=== PATIENT | female | born 1970 | race Caucasian/White ===

== ENCOUNTER 2023-10-17 18:23 | Inpatient (IN) | payer BC, SELFPAY ==
[2023-10-17] VITALS (12 sets, daily range): BP systolic 94–137; BP diastolic 47–115; BMI 24.5; BMI 24.0
[2023-10-17 14:19] LABS: % Basophils 0.3 % (0-2); % Eosinophils 0.8 % (0-6); % Immature Granulocytes 0.2 % (0-0.5); % Lymphocytes 14.9 % (20.5-51.1); % Monocytes 9.3 % (1.7-9.3); % Neutrophils 74.5 % (42.2-75.2); Absolute Eosinophils 0.1 10^3/uL (0-0.7); Absolute Lymphocytes 1.4 10^3/uL (1.2-3.4); Absolute Monocytes 0.9 10^3/uL (0.1-0.6); Absolute Neutrophils 6.8 10^3/uL (1.4-6.5); Hematocrit 34.7 % (37.0-47.0); Hemoglobin 12.2 g/dL (12.0-16.0); Mean Corp Hgb Conc. 35.2 g/dL (33.0-37.0); Mean Corpuscular Hgb 36.5 pg (27.0-31.0); Mean Corpuscular Volume 103.9 fL (81.0-99.0); Mean Platelet Volume 10.9 fL (7.4-10.4); Nucleated Red Blood Cells % 0 %; Platelet Count 300 10^3/uL (130-400); Red Blood Cell Count 3.34 10^6/uL (4.20-5.40); Red Cell Dist. Width 11.7 % (11.5-14.5); White Blood Cell Count 9.2 10^3/uL (4.8-10.8)
--- NOTE | 2023-10-17 14:22 | PHANOTE ---
Medications brought from home:
[facility] [place]:
levothyroxine 50 mcg daily filled 09/17/23
amlodipine 5mg daily filled 09/17/23
carvedilol 25mg filled 09/17/23 (08/17/23)
gabapentin 300mg q8hprn filled (03-12-23)
escitalopram 10 mg filled 07/18/22
atorvastatin 20mg filled 08/27/23
zolpidem 10 mg filled 09/18/23 - #12 tabs and 3 half-tabs
metoprolol succ 100mg daily filled 07/11/22
Nakul Bai ([address])
alprazolam 0.25 daily filled 10/24/20 - #15 tabs
JENA Chinchilla
Venlafaxine ER 75mg daily filled 05/07/21
--- NOTE | 2023-10-17 14:27 | ED.GENMED ---
History of Present Illness
<Ysabel Post PA-C - Last Filed: 10/17/23 16:25>
General
Chief Complaint: Change in Mental Status
Source: patient, family and ambulance crew
Exam Limitations: altered mental status
Time Seen by Provider: 10/17/23 14:10
Nursing documentation reviewed up to this point in time: agreed with
Travel History
Have you had any contact with someone who has COVID-19?: No
Do you have any symptoms of coronavirus? Fever > 100 degrees, chills, cough, shortness of breath, sore throat, loss of taste or smell, muscle aches, or headache?: No
History of Present Illness
History of Present Illness:
53-year-old female with a history of alcohol abuse here via EMS after brother apparently called 911. EMS reported that she was not answering the phone and so he went over to check on her. Patient seemed more confused and apparently stopped 'taking
her meds.' We are not sure what medications were talking about. She had reported daily vodka use until sometime ago which she cannot recall. Patient says she is having trouble with her memory. She knows she had her face and the back of her head
but does not remember the nature of what happened. She does not know if she passed out, she does not know when she could have done these things but she has bruising to her left face.
Patient is perseverating about needing her Ambien at night. She believes that her brother is in the hallway of the department and talking about he, she says she can hear his voice. Patient was told several times that he was not in the hallway, I
went to the waiting room to look for him he was not there, I did call his number and he did not miner pick we left a message. She does give me consent to talk to her brother when I get a hold of him.
she wants me to know that she needs ambien but whne asked how often does she take it, she says only ionce at night.
Patient's brother and his partner came to the hospital and I was able to talk to them privately. Apparently the patient has not been herself more recently, they have had a hard time getting a hold of her on the telephone and they were busy with the
restaurant so they had not checked in on her but when patient's mother who is out of town continually called her through the night she did not answer the mom asked the brother to go to the house. He went to the house today and banged on the door
and was able to get in, he saw that she had obvious signs of head trauma
They say this is not how she normally appears but they have not seen her in a few weeks
Past History
<Ysabel Post PA-C - Last Filed: 10/17/23 16:25>
Past History
ED Past Medical History: Hypercholesterolemia
ED Past Surgical History: None
Social History
Tobacco: Non-smoker
Alcohol: Other (Unclear but sounds like patient was pretty heavily drinking for quite a bit)
Personal:
Living: with family
Employment: Employed
Review of Systems
<Ysabel Post PA-C - Last Filed: 10/17/23 16:25>
Review of Systems
Allergies reviewed?: Yes
Phy Exam
<Ysabel Post PA-C - Last Filed: 10/17/23 16:25>
Physical Exam
Physical Exam:
GENERAL: Alert seems slightly anxious, perseverating, somewhat nonsensical at times pulling at things
HEAD: Obvious moderate size hematoma to the left temporal region, mild hematoma to the top of the scalp
NECK: no midline tenderness, active ROM intact, no paraspinal muscle tenderness;
EYE: pupils equal and reactive, EOMs intact., No obvious nystagmus, no intact visual field exam
ENT: o/p clr, mmm. no hemotympanum
CARDIAC: Regular rate and rhythm, no edema
LUNGS: Clear breath sounds bilaterally, no acute respiratory distress, no wheezes/rales/rhonchi
ABDOMEN: Soft, without focal tenderness, no r/g, no cvat
NEUROLOGICAL: Alert and oriented, no focal neuro deficits, CN intact, 5/5 strength, sensation intact
SKIN: Warm and dry, ecchymosis left head
MUSCULOSKELETAL: mild bruising old on right hand nontneder full rom
PSYCH: anxious, psychosis, hallucinating, seems to be responding to simtuli, thinks her brother is in the room, looked at the cabinet and thought it was a person
Course
<Ysabel Post PA-C - Last Filed: 10/17/23 16:25>
Orders/Labs/Results
Orders:
Orders
10/17/23 13:57
EKG [Electrocardiogram (*1)] Urgent
Reason for Study: Vertigo / Dizzy
EKG- Treatment ONCE
10/17/23 13:59
Alcohol Urgent
Complete Blood Count/With Diff Urgent
Comprehensive Metabolic Panel Urgent
Magnesium Urgent
Comment: ADD ON
TSH Reflex To Free T4 Urgent
Comment: ADD ON
Urine Drug Abuse Screen Urgent
Date Specimen was Collected: 10/17/23
Time Specimen was Collected: 13:57
10/17/23 14:04
CT Head W/o Iv Contrast Urgent
Comment:
Reason For Exam: unwitnessed fall with strike to head
10/17/23 14:22
Lorazepam [Ativan] 1 mg IV NOW STA
10/17/23 14:26
EKG- Treatment ONCE
PTT Urgent
Prothrombin Time Urgent
10/17/23 14:27
Add On- LAB Urgent
Tests Added?: tsh reflex t4, magnesium
10/17/23 15:00
Thiamine Injection 500 mg 0.9% Sodium Chloride 250 ml [Nss] 250 ml IV ONCE
Abnormal Lab Results
10/17/23
13:59
RBC 3.34 L 10^6/uL
(4.20-5.40)
Hct 34.7 L %
(37.0-47.0)
MCV 103.9 H fL
(81.0-99.0)
MCH 36.5 H pg
(27.0-31.0)
MPV 10.9 H fL
(7.4-10.4)
Absolute Neuts (auto) 6.8 H 10^3/uL
(1.4-6.5)
Absolute Monos (auto) 0.9 H 10^3/uL
(0.1-0.6)
Lymphocytes % 14.9 L %
(20.5-51.1)
BUN 25 H mg/dl
(7-17)
Glucose 131 H mg/dl
(70-99)
Calcium 10.3 H mg/dl
(8.4-10.2)
AST 60 H U/L
(14-36)
ALT 68 H U/L
(0-35)
10/17/23 13:59
10/17/23 13:59
Vital Signs
Initial and Last Documented VS:
Initial Vital Signs
Temp Pulse Resp BP Pulse Ox
98.2 F 72 16 136/71 99
10/17/23 13:58 10/17/23 13:58 10/17/23 13:58 10/17/23 13:58 10/17/23 13:58
Last Documented Vital Signs
Temp Pulse Resp BP Pulse Ox
98.2 F 82 19 109/63 99
10/17/23 13:58 10/17/23 16:00 10/17/23 16:00 10/17/23 16:00 10/17/23 13:58
Vinayaklt;Dharmesh Han, DO - Last Filed: 10/17/23 16:13>
Orders/Labs/Results
Orders:
Orders
10/17/23 13:57
EKG [Electrocardiogram (*1)] Urgent
Reason for Study: Vertigo / Dizzy
EKG- Treatment ONCE
10/17/23 13:59
Alcohol Urgent
Complete Blood Count/With Diff Urgent
Comprehensive Metabolic Panel Urgent
Magnesium Urgent
Comment: ADD ON
TSH Reflex To Free T4 Urgent
Comment: ADD ON
Urine Drug Abuse Screen Urgent
Date Specimen was Collected: 10/17/23
Time Specimen was Collected: 13:57
10/17/23 14:04
CT Head W/o Iv Contrast Urgent
Comment:
Reason For Exam: unwitnessed fall with strike to head
10/17/23 14:22
Lorazepam [Ativan] 1 mg IV NOW STA
10/17/23 14:26
EKG- Treatment ONCE
PTT Urgent
Prothrombin Time Urgent
10/17/23 14:27
Add On- LAB Urgent
Tests Added?: tsh reflex t4, magnesium
10/17/23 15:00
Thiamine Injection 500 mg 0.9% Sodium Chloride 250 ml [Nss] 250 ml IV ONCE
Abnormal Lab Results
10/17/23
13:59
RBC 3.34 L 10^6/uL
(4.20-5.40)
Hct 34.7 L %
(37.0-47.0)
MCV 103.9 H fL
(81.0-99.0)
MCH 36.5 H pg
(27.0-31.0)
MPV 10.9 H fL
(7.4-10.4)
Absolute Neuts (auto) 6.8 H 10^3/uL
(1.4-6.5)
Absolute Monos (auto) 0.9 H 10^3/uL
(0.1-0.6)
Lymphocytes % 14.9 L %
(20.5-51.1)
BUN 25 H mg/dl
(7-17)
Glucose 131 H mg/dl
(70-99)
Calcium 10.3 H mg/dl
(8.4-10.2)
AST 60 H U/L
(14-36)
ALT 68 H U/L
(0-35)
10/17/23 13:59
10/17/23 13:59
Vital Signs
Initial and Last Documented VS:
Initial Vital Signs
Temp Pulse Resp BP Pulse Ox
98.2 F 72 16 136/71 99
10/17/23 13:58 10/17/23 13:58 10/17/23 13:58 10/17/23 13:58 10/17/23 13:58
Last Documented Vital Signs
Temp Pulse Resp BP Pulse Ox
98.2 F 82 19 109/63 99
10/17/23 13:58 10/17/23 16:00 10/17/23 16:00 10/17/23 16:00 10/17/23 13:58
<Ysabel Post PA-C - Last Filed: 10/17/23 16:25>
MDM/Problems Addressed
MDM/Problems Addressed:
pt saw another pcp in the practice last week and his note does not say p tis confused but pt has never admitted to excessive alcohol intake,but they have suggested that she probably does drink more heavily than she admits
i spoke with DIRECTOR MULTIMEDIA who reviewed the note
53 y/o F with h/o hypothyroid, anxiety, sleep issues, depression, and likely chronic alcohol abuse; she apparently stopped drinking in some time frame - she cannot recall, and her brother thinks it was a few weeks ago, she says cold turkey; she
wasn't answering her phone for the weekend so then today her brother went to the house and she was found disheveled, obvious left temporal head contusion and hallucinating; here pt seems to be hearing voices, disoriented to time, a little anxious,
tremulous but has otherwise nonfocal neuro exam; she answers some questions nonsensically
vitals stable, ct head neg, sodium normal, mild trasnaminitis (less than at PCP last week, 100s then 60s now); alcohol neg; uds pending
she has been prescribed ambien and is perseverating about needing it, she may be takin too much at home, but its unclear what's causing her psychosis; she ocul dhave some underlying mental illness but i'm also worried about wernickes; she got 500 mg
iv thiamine, NS bolus, and ativan; will need neuro and psych consults
<Ysabel Post PA-C - Last Filed: 10/17/23 16:25>
*Critical Care Note
Total Time (30-74mins, 75-104mins- exclusive of procedures): Not Applicable
ED Attending Note
<Ysabel Post PA-C - Last Filed: 10/17/23 16:25>
-
Portions of this chart may have been created with voice recognition software.� Occasional wrong word or��sound alike� substitutions may have occurred due to the inherent limitations of voice recognition software.
<Dharmesh Han DO - Last Filed: 10/17/23 16:13>
ED Attending Note
Patient seen and examined by attending physician: Yes
I performed a history and physical exam of patient and discussed management with resident, I reviewed resident's note and agree with documented findings and plan of care.: Yes
ED Attending Note:
I have reviewed and agree with history and treatment plan by Aura Post. My exam revealed
Physical Exam
General: Afebrile, disheveled
Neck: supple. no meningeal signs. normal posterior pharynx
Heart: s1/s2 regular rate and rhythm, no murmur. equal radial
pulses.
HEENT: Pupils equal round reactive to light, EOMI
Lungs: no acute respiratory distress. clear bilaterally
Abdomen: normal bowel sounds. not tender. no CVAT
Neuro: alert and oriented to person. no focal neurological deficits cranial nerves II through XII intact, resting tremor
Skin: no rash, healing hematoma left forehead/supraorbital
Psychiatric: Confused, tangential thought
Extremities: no edema. no calf tenderness. negative homans. good distal pulses
53-year-old female with altered mental status, unclear timing. Concerns for polypharmacy, psychosis, alcohol withdrawal, toxic metabolic encephalitis. Do not suspect CVA. Admit to hospital for further evaluation.
Discharge Plan
Departure
Patient Disposition: Admit
Date of Disposition: 10/17/23
Time of Disposition: 16:03
Presentation/result/management discussed w/ accepting MD/DO: Hospitalist
Condition: Fair
Covid-19: Not Applicable
Discharge Problem:
AMS (altered mental status)
Prescriptions:
No Action
carvedilol 25 mg tablet
25 mg PO BID
atorvastatin 20 mg tablet
20 mg PO DAILY
amlodipine 5 mg tablet
5 mg PO DAILY
levothyroxine 50 mcg tablet
50 mcg PO DAILY@0600
zolpidem 10 mg tablet
10 mg PO HS
Referrals:
UNKNOWN - PT DOES,NOT KNOW [Family Provider] -
Interventions
Interventions:
*Risk Screen - Suicide Last Done: 10/17/23 13:58
*General Assessment Last Done: 10/17/23 13:58
*Neglect/Abuse Screening Last Done: 10/17/23 13:58
ED- Fall Risk Assessment Last Done: 10/17/23 13:58
*ED COVID-19 Vaccine History Last Done: 10/17/23 13:58
ED- Pulmonary Assessment Last Done: 10/17/23 13:58
ED-Psychological Assessment Last Done: 10/17/23 13:58
ED- Neurological Assessment Last Done: 10/17/23 13:58
ED- Cardiac Assessment Last Done: 10/17/23 13:58
ED Swallowing Screen Last Done: 10/17/23 13:58
Discharge Date and Time
Print Language: TAIWANESE
[2023-10-17 14:36] LABS: ALT (SGPT) 68 U/L (0-35); AST (SGOT) 60 U/L (14-36); Albumin 4.8 g/dl (3.5-5.0); Alkaline Phosphatase 96 U/L (38-126); Blood Urea Nitrogen 25 mg/dl (7-17); Calcium 10.3 mg/dl (8.4-10.2); Carbon Dioxide 25 mmol/L (22-30); Chloride 105 mmol/L (98-107); Estimated Creatinine Clearance 85 ml/min; Glucose 131 mg/dl (70-99); Potassium 3.7 mmol/L (3.5-5.1); Sodium 141 mmol/L (135-145); Total Protein 7.4 g/dl (6.3-8.2); eGFR > 60.00
[2023-10-17 14:40] LABS: Alcohol None Detected
[2023-10-17] MEDS: ATIVAN 1 MG IV ×2 (14:54→17:46)
--- NOTE | 2023-10-17 14:54 | EDRN ---
Ativan administered via IV per provider Ysabel LEDESMA
[2023-10-17] MEDS: THIAMINE INJECTION 255 MG IV (15:12)
[2023-10-17 15:19] LABS: TSH Reflex To Free T4 2.18 uIU/ml (0.47-4.68)
--- NOTE | 2023-10-17 16:22 | EDRN ---
the pt pressed the call parker and this RN entered the pts room, the pt stated to this RN that she needed to use the bathroom, the pt was unhooked from the monitor and the pt was able to ambulate to the bathroom x1 assist and back to the stretcher
with no issues, urine specimen collected and sent to the lab, the pt is resting in stretcher in the lowest position, side rails up x2, call parker within reach, HOB elevated, will continue to monitor the pt closely
[2023-10-17 16:37] LABS: Amphetamines Negative (Negative); Barbiturates Negative (Negative); Benzodiazepines Negative (Negative); Buprenorphine Negative (Negative); Cocaine Negative (Negative); Methadone Negative (Negative); Methamphetamines Negative (Negative)
[2023-10-17 16:38] LABS: Marijuana Negative (Negative); Opiates Negative (Negative); Phencyclidine Negative (Negative); Tricyclic Antidepressants Negative (Negative)
[2023-10-17 17:07] LABS: Urine Albumin Trace (Neg - Trace); Urine Bilirubin 1+ (Negative); Urine Character Clear (Clear); Urine Color Yellow; Urine Glucose Negative (Negative); Urine Ketone 3+ (Negative); Urine Leukocyte Negative (Negative); Urine Nitrite Negative (Negative); Urine Occult Blood 3+ (Negative); Urine Specific Gravity 1.025 (<1.030); Urine Urobilinogen Negative (Neg - 1+)
--- NOTE | 2023-10-17 17:15 | EDRN ---
still awaiting admission orders
[2023-10-17 17:20] LABS: Urine Bacteria Moderate (Negative); Urine Mucus Few; Urine Red Blood Cell 26-30 /HPF (0-2)
--- NOTE | 2023-10-17 17:27 | HPS.HSE ---
Family Physician
<MANISHA Amato - Last Filed: 10/17/23 18:12>
-
Family Physician: NOT KNOW UNKNOWN - PT DOES
Chief Complaint
<MANISHA Amato - Last Filed: 10/17/23 18:12>
-
Acute confusion
History of Present Illness
53-year-old female whose brother called for a well check after not hearing from her. They have not seen her in approximately a few weeks. The patient is an alcoholic normally uses daily vodka 750 mL she reports stopping drinking she thinks in
July but then states she cut down on drinking and is unsure of her last drink she also has stopped taking her medications which she cannot list. She is unsure how she obtained a bruise to the left side of her face. She was visually
hallucinating seeing her brother in the hallway, in the room, laughing inappropriately counting 10, 20, 30�, Seeing formations of clouds and her dog Mihir While in the emergency department. According to her phone record the last outgoing
phone call she made was to her friend Bryson on Sunday that lasted approximately 18 minutes. She has no recollection of speaking with him. She denies current headache, fever, sore throat, cough, shortness of breath, abdominal pain, nausea, vomiting,
diarrhea, urinary symptoms
She has past medical history of alcohol abuse, HTN, HLD, insomnia, hypothyroidism.
Medical History
<MANISHA Amato - Last Filed: 10/17/23 18:12>
Past Medical History
Past Medical History: Reports Other
Additional Past Medical History:
alcohol abuse, HTN, HLD, insomnia, hypothyroidism.
Past Surgical History: Reports Other
Additional Past Surgical History:
Right index finger bony growth removal with local anesthesia
Appendectomy
Social History
Tobacco: Non-smoker
Alcohol: Daily (750 mL vodka unsure when she stopped)
Drug: None
Personal: Single
Living: Alone
Employment: Not Employed
Family History
Family History: Unable to Obtain
Allergies / Home Medications
Allergies reflects when Allergies were last updated in [facility].
Home Medications with original date entered in [facility]
Allergy/Medication List:
Allergies
Allergy/AdvReac Type Severity Reaction Status Date / Time
erythromycin base Allergy Hives Verified 12/04/22 13:38
[Erythromycin Base]
Home Medications
amlodipine 5 mg tablet 5 mg PO DAILY 10/17/23
atorvastatin 20 mg tablet 20 mg PO DAILY 10/17/23
carvedilol 25 mg tablet 25 mg PO BID 10/17/23
levothyroxine 50 mcg tablet 50 mcg PO DAILY@0600 10/17/23
zolpidem 10 mg tablet 10 mg PO HS 10/17/23
Review of Systems
<MANISHA Amato - Last Filed: 10/17/23 18:12>
-
History Source: Patient and Family (Brother to emergency department MD)
A 12 point ROS was completed and negative except as noted: Yes
Constitutional: Reports Other (Confusion with visual hallucinations seeing her brother, dog, formation of clouds, inappropriately laughing and counting); Denies Fever
EENT: Reports Other (Resolving contusion to left temporal area); Denies Sore Throat or Runny Nose
Respiratory: Denies Cough or Trouble Breathing
Cardiac: Denies Chest Pain, Diaphoresis or Palpitations
Abdomen/GI: Denies Abdominal Pain, Nausea, Vomiting, Diarrhea, Constipated, Bloody Stools or Black Stools
: Denies Dysuria, Frequency, Flank Pain, Incontinence or Difficulty Voiding
Musculoskeletal: Denies Joint Pain or Edema
Skin: Denies Itching or Rash
Neurological: Denies Dizzy, Headache or Weakness
Endocrine: Reports No Symptoms
Hematologic/Lymphatic: Reports No Symptoms
Psych: Reports Audio or Visual Hallucinations (Visual hallucinations) and Other (Tremors to hands)
Physical Exam
<MANISHA Amato - Last Filed: 10/17/23 18:12>
Vital Signs
Vital Signs
Temp Pulse Resp BP Pulse Ox
98.2 F 84 20 108/47 99
10/17/23 13:58 10/17/23 16:30 10/17/23 16:30 10/17/23 16:15 10/17/23 13:58
Physical Exam
General: Other ( Confusion with visual hallucinations seeing her brother, dog, formation of clouds, inappropriately laughing and counting)
HEENT: NormoCephalic, Anicteric, Moist mucous membranes, PERRLA, [place] Conjunctivae, No Ptosis, Neck Nontender and Other (Resolving bruise left temporal/left orbit area)
Respiratory: Clear; No Wheezes, Rales or Rhonchi
Cardiac: S1/S2 and Regular Rhythm; No Murmur, Rub, Gallop or Peripheral Edema
Breast: Deferred by me
GI: Soft, Non Tender, Non Distended, Normal Bowel Sounds and No Hepatosplenomegaly
Rectal: Deferred by Provider
Genito-urinary: Deferred by me
Musculoskeletal: No Clubbing, No Cyanosis and No Edema
Skin: Warm, Dry and Other (Resolving bruise left temporal area); No Rash
Neuro: Awake, Alert and Oriented (To name and [facility] only when asked date she states the rounding and the [place])
Psych: Other (Confusion with visual hallucinations seeing her brother, dog, formation of clouds, inappropriately laughing and counting)
Laboratory Results
<MANISHA Amato - Last Filed: 10/17/23 18:12>
-
10/17/23 13:59
10/17/23 13:59
Laboratory Results
Total Bilirubin 1.0 mg/dl (0.2-1.3) 10/17/23 13:59
AST 60 U/L (14-36) H 10/17/23 13:59
ALT 68 U/L (0-35) H 10/17/23 13:59
Alkaline Phosphatase 96 U/L (38-126) 10/17/23 13:59
Impression/Plan
<MANISHA Amato - Last Filed: 10/17/23 18:12>
-
Impression/plan:
Admit to IMU
#Acute encephalopathy with Hallucinations concern for Wernicke's/alcohol withdrawal
# Hx alcohol abuse-unclear last use
EtOH level negative
UDS negative
TSH normal
-Consult neurology
-Consult psychiatry
-Check MRI brain with and without in a.m.-patient may require IV Ativan prior
-IV Ativan given in ER
-Check COVID/flu, B12, folate
-Alcohol withdrawal protocol including thiamine and folate
-Phenobarb taper
CT head: Mild changes of cortical atrophy, no acute intracranial abnormality
EKG: NSR 70 bpm, QTc 438 MS
#Left temporal head contusion likely secondary to fall
#Chronic transaminitis likely secondary to alcohol abuse
-Follow CMP, check INR
#Hypothyroidism
TSH NML
-Continue levothyroxine 50 mcg daily
#HTN�benign
108/47
Hold amlodipine 5 mg daily, carvedilol 25 mg p.o. twice daily due to soft BPs
#HLD
- cont atorvastatin
#Insomnia
-Hold Ambien 10 mg at bedtime due to confusion
DVT prophylaxis
SCDs
Full code
<Venkata Alanis MD - Last Filed: 10/17/23 18:25>
-
I saw and examined the patient.
The PRODUCT SUPPORT REPRESENTATIVE or PA's note was reviewed and I agree with the note.
Comment:
Patient appears to be confused
Ecchymosis on the left druze area just in the lateral corner of the left eye
Cardiovascular system S1-S2 appreciated
Chest clear to auscultation
Abdomen soft nontender
No pedal edema
Patient is confused moving all extremities with commands
Answer some questions appropriately but also very confused
# TME
Likely secondary to DTs
Alcohol level 0
Cannot rule out other alcohol related brain injury
Check MRI of the brain with and without contrast
Phenobarbital taper
MSAS protocol and Ativan
Agree with high-dose of thiamine
CT already with changes of cortical atrophy at age 53
Hold Ambien
# Alcohol use disorder-thiamine
# Elevated transaminases secondary to alcohol use
# Hypertension-hold off on amlodipine and carvedilol due to low blood pressure
# Hyperlipidemia-hold off on atorvastatin with elevated LFTs
# Hypothyroidism-continue Synthroid
# Insomnia-Ambien
# Microscopic hematuria
# DVT prophylaxis-Lovenox
# Full code
Impression/plan:
Admit to IMU
#Acute encephalopathy with Hallucinations concern for Wernicke's/alcohol withdrawal
# Hx alcohol abuse-unclear last use
EtOH level negative
UDS negative
TSH normal
-Consult neurology
-Consult psychiatry
-Check MRI brain with and without in a.m.-patient may require IV Ativan prior
-IV Ativan given in ER
-Check COVID/flu, B12, folate
-Alcohol withdrawal protocol including thiamine and folate
-Phenobarb taper
CT head: Mild changes of cortical atrophy, no acute intracranial abnormality
EKG: NSR 70 bpm, QTc 438 MS
#Left temporal head contusion likely secondary to fall
#Chronic transaminitis likely secondary to alcohol abuse
-Follow CMP, check INR
#Hypothyroidism
TSH NML
-Continue levothyroxine 50 mcg daily
#HTN�benign
108/47
Hold amlodipine 5 mg daily, carvedilol 25 mg p.o. twice daily due to soft BPs
#HLD
- cont atorvastatin
#Insomnia
-Hold Ambien 10 mg at bedtime due to confusion
DVT prophylaxis
SCDs
Full code
--- NOTE | 2023-10-17 17:46 | EDRN ---
A second dose of Ativan was administered via PIV per the provider Ysabel LEDESMA
[2023-10-17] MEDS: NSS 1000 IV ×2 (17:47→21:41)
--- NOTE | 2023-10-17 17:50 | EDRN ---
Rica Mora RAIL SETTER currently at the pts bedside speaking with the pt regarding admission
--- NOTE | 2023-10-17 18:11 | EDRN ---
the pt is resting in stretcher in the lowest position, side rails up x2, call parker within reach, HOB elevated, no s/s of distress, NSR in the 80's, RA Sp02 98%, no c/o chest pain, no c/o SOB, the pt is AAO with periods of confusion, will continue to
monitor the pt closely
[2023-10-17 18:16] LABS: INR 1.18; PT 15.1 Sec (11.4-14.6)
[2023-10-17 18:17] LABS: APTT 26.7 Sec (23.4-35.0)
[2023-10-17 18:24] LABS: COVID-19 Antigen Negative (Negative)
--- NOTE | 2023-10-17 18:30 | EDRN ---
second PIV placed, awaiting phenobarbitol
--- NOTE | 2023-10-17 18:46 | EDRN ---
this RN noticed that the pts Sp02 dipped to 89%, this RN placed the pt on 3L NC and the pts sp02 came up to 97%, no c/o chest pain, no c/o SOB, no s/s of distress
[2023-10-17] MEDS: PHENOBARBITAL 104 MG IV (18:56)
--- NOTE | 2023-10-17 21:00 | PTCARENOTE ---
Received Pt from Ed. MSAS and Q4 neuro completed (see work list). Assessment care and vitals as charted.
[2023-10-17] MEDS: LOVENOX 40 MG SC (21:41)
[2023-10-17 22:29] LABS: GGTP 242 U/L (12-43); Phosphorus 4.1 mg/dl (2.5-4.5)
[2023-10-17 22:35] LABS: B-Hydroxybutyrate 0.91 mmol/L (0.02-0.27)
[2023-10-18] VITALS (14 sets, daily range): BP systolic 97–161; BP diastolic 70–98; PULSE 82–86; O2SAT 96–98; BMI 24.2
[2023-10-18] MEDS: THIAMINE INJECTION 255 MG IV ×3 (00:01→16:35)
--- NOTE | 2023-10-18 03:35 | PTCARENOTE ---
Pt having discomfort on right lower arm/ elbow. Shoulder full motion and strong hand grasp. Pt states ' i hit it some place and then it fell asleep yesterday when i was sleeping'. Pt also having slight fever, night INTERNATIONAL BANK MANAGER made aware, Tylenol given.
[2023-10-18] MEDS: TYLENOL 650 MG PO (04:16)
[2023-10-18] MEDS: ATIVAN 1 MG PO (04:16)
[2023-10-18] MEDS: SYNTHROID 50 MCG PO (04:16)
[2023-10-18 05:29] LABS: ALT (SGPT) 44 U/L (0-35); AST (SGOT) 40 U/L (14-36); Albumin 3.4 g/dl (3.5-5.0); Alkaline Phosphatase 84 U/L (38-126); Blood Urea Nitrogen 11 mg/dl (7-17); Calcium 9.1 mg/dl (8.4-10.2); Carbon Dioxide 22 mmol/L (22-30); Chloride 113 mmol/L (98-107); Estimated Creatinine Clearance 89 ml/min; Glucose 100 mg/dl (70-99); Potassium 3.5 mmol/L (3.5-5.1); Sodium 141 mmol/L (135-145); Total Bilirubin 0.8 mg/dl (0.2-1.3); Total Protein 5.9 g/dl (6.3-8.2); eGFR > 60.00
[2023-10-18 05:51] LABS: % Basophils 0.6 % (0-2); % Immature Granulocytes 0.3 % (0-0.5); % Lymphocytes 20.6 % (20.5-51.1); % Monocytes 10.2 % (1.7-9.3); % Neutrophils 67.3 % (42.2-75.2); Absolute Eosinophils 0.1 10^3/uL (0-0.7); Absolute Lymphocytes 1.4 10^3/uL (1.2-3.4); Absolute Monocytes 0.7 10^3/uL (0.1-0.6); Absolute Neutrophils 4.6 10^3/uL (1.4-6.5); Hematocrit 32.7 % (37.0-47.0); Hemoglobin 11.6 g/dL (12.0-16.0); Mean Corp Hgb Conc. 35.5 g/dL (33.0-37.0); Mean Corpuscular Hgb 36.5 pg (27.0-31.0); Mean Corpuscular Volume 102.8 fL (81.0-99.0); Mean Platelet Volume 11.9 fL (7.4-10.4); Nucleated Red Blood Cells % 0 %; Platelet Count 237 10^3/uL (130-400); Red Blood Cell Count 3.18 10^6/uL (4.20-5.40); Red Cell Dist. Width 11.5 % (11.5-14.5); White Blood Cell Count 6.9 10^3/uL (4.8-10.8)
[2023-10-18] MEDS: ATIVAN 1 MG IV (06:18)
[2023-10-18 06:33] LABS: Vitamin B12 727 pg/ml (239-931)
[2023-10-18 07:01] LABS: Urine Albumin Trace (Neg - Trace); Urine Bilirubin Negative (Negative); Urine Character Slightly Cloudy (Clear); Urine Color Amber; Urine Glucose Negative (Negative); Urine Ketone 2+ (Negative); Urine Leukocyte Trace (Negative); Urine Nitrite Negative (Negative); Urine Occult Blood 4+ (Negative); Urine Specific Gravity 1.025 (<1.030); Urine Urobilinogen Negative (Neg - 1+)
[2023-10-18] MEDS: PHENOBARBITAL 97.5 MG IV ×3 (07:40→22:00)
[2023-10-18] MEDS: FOLVITE 1 MG PO (07:40)
[2023-10-18] MEDS: NSS 1000 IV (07:41)
--- NOTE | 2023-10-18 07:45 | CON.NEURO4 ---
Consultation - Neurology 4
-
CONSULTING PHYSICIAN: Sasha Zheng
REFERRING PHYSICIAN: Hospitalist
DICTATED BY: Sasha Zheng
DATE/TIME OF REQUEST: 10/18/23
DATE/TIME OF CONSULTATION: 10/18/23
Reason for Consultation: Hallucinations, alcohol abuse, concern for Wernicke's encephalopathy
History of Present Illness:
The patient is a 53-year-old woman with a past medical history of hypertension, hyperlipidemia, alcohol abuse who presents to the hospital after a wellness check after family had not heard from her for some time perhaps a few weeks. Her brother
had found her with signs of head trauma and confusion with change in mental status from baseline. She was brought in via EMS she seemed confused with some memory loss, was found to have bruising to the left side of the face and orbit. Per the ER
she showed some evidence of hallucinations thinking that her brother had been in the hallway.
Here in the hospital she has been started on phenobarbital first with IV dose and then p.o. taper and given 1 mg IV lorazepam and started on IV high doses of thiamine.
Currently patient's sedation prohibits much conversation but patient is able to obey simple commands.
Past Medical History: Hypertension, hyperlipidemia, hypothyroidism, alcohol abuse
Surgical History: Right finger surgery, appendectomy
Family History: Non-contributory
Social History: Lives alone, has a brother, no tobacco, heavy alcohol use usually daily usually vodka bottle 750 ml, unclear last use
Allergies: Erythromycin base
Review of Symptoms:
Unable to obtain due to lethargy
Physical Exam:
Middle-aged woman with left periorbital bruising, neck with full range of motion and no abnormalities cervical spine, neck with no masses oropharynx is clear with no tongue laceration seen, heart rate regular, breathing unlabored, abdomen soft
nontender, no lower extremity edema is seen.
Neurologic Examination:
Patient is sleeping and takes voice and gentle tactile stimulation to rouse, she is mildly lethargic drifting off and attention after a few seconds, she will count to 10 when prompted to do so and will be simple commands consistently, and oriented
to her name and understands she is in the hospital. No active hallucinations at this time.
Cranial nerve examination shows pupils 3 mm equal round react light bilaterally, resting gaze midline, extraocular's are full, no ptosis, smile symmetric, tongue is midline, mild dysarthria.
Motor examination shows no tremor normal muscle tone normal muscle bulk, power is 5/5 for arm flexion and hip flexion and knee extension bilaterally.
Intact to vibration and light touch throughout.
Reflexes 2+ biceps triceps brachialis patella and Achilles no clonus
No ataxia and spontaneous movements of arms or legs or finger-nose testing bilaterally
Gait examination deferred
Neuro Imaging: CT head noncontrast unremarkable no acute abnormalities no acute stroke signs or edema no hydrocephalus
Impressions
1. Alcohol abuse with concern for alcoholic hallucinosis or a Wernicke's encephalopathy. Patient with some lethargy at this time most likely due to Phenobarbital and lorazepam.
2. Hypertension
3. Hyperlipidemia
4. Hypothyroidism
Recommendations:
1. Check MRI brain with and without contrast to examine for any of the imaging findings of Wernicke's encephalopathy
2. Check routine EEG
3. Continue checks for alcohol withdrawal with as needed lorazepam
4. Continue phenobarbital to
5. High-dose IV thiamine 5 mg every 8 hours anticipate for couple of days before moving to PO. Give IV folate as well
6. Would hold home zolpidem
7. Will need resources for alcohol abuse treatments
[2023-10-18 08:00] LABS: Urine Squamous Cell 16-20 /LPF (Few)
[2023-10-18 08:01] LABS: Urine Bacteria Few (Negative); Urine Red Blood Cell 40-50 /HPF (0-2)
[2023-10-18 08:02] LABS: Urine Mucus Few
--- NOTE | 2023-10-18 08:50 | W.PN.HOSP.TC ---
Today's Communication/Plan
-
MRI of the brain
Restart Coreg lower dose
Speech evaluation
Assessment / Plan
Assessment / Plan
Patient appears to be confused- with periods of lucidity
Ecchymosis on the left religion area just in the lateral corner of the left eye
Cardiovascular system S1-S2 appreciated
Chest clear to auscultation
Abdomen soft nontender
No pedal edema
Patient is confused moving all extremities with commands
Patient is aware where she is, that she is at [facility]
# TME
Likely secondary to DTs
Alcohol level 0 on admission
Cannot rule out other alcohol related brain injury
Check MRI of the brain with and without contrast
Phenobarbital taper
MSAS protocol and Ativan
Agree with high-dose of thiamine
CT already with changes of cortical atrophy at age 53
Hold Ambien
Will also get blood cultures, chest x-ray, repeat urinalysis, ultrasound of the abdomen given temperature of 100
# Alcohol use disorder-thiamine
# Elevated transaminases secondary to alcohol use. NO RUQ Tenderness, but with pt being confused, get an USS.
# Hypertension-Restart carvedilol 12.5 mg bid ( On 25 BID as Op) and hold Norvasc 5 mg
# Hyperlipidemia-hold off on atorvastatin with elevated LFTs
# Hypothyroidism-continue Synthroid. TSH stable
# Insomnia-Ambien should be held
# Microscopic hematuria-repeat urine analysis
# DVT prophylaxis-Lovenox
# Full code
D/W RN at bed side
Patient indicated to nursing that she does not want mom to be contacted. She is okay with us contacting the brother. I spoke to the patient's brother and updated about her condition. She works as a [employer].
Anticipated Discharge: 24 - 48 hours
Subjective/Interval History
-
Date of Service: October 18, 2023
Objective Data
-
Labs:
Laboratory Results
10/18/23
04:58
WBC 6.9
Hgb 11.6 L
Hct 32.7 L
Plt Count 237 D
Sodium 141
Potassium 3.5
Chloride 113 H
Carbon Dioxide 22
BUN 11
Creatinine 0.5 L
Glucose 100 H
Calcium 9.1
Total Bilirubin 0.8
AST 40 H
ALT 44 H
Alkaline Phosphatase 84
Vital Signs:
Vital Signs
Temp Pulse Resp BP Pulse Ox
100.0 F 75 16 161/90 100
10/18/23 03:53 10/18/23 06:16 10/18/23 06:16 10/18/23 06:16 10/18/23 06:16
I&O
10/17/23 10/18/23 10/19/23
06:59 06:59 06:59
Intake Total 1175 / 1175
Output Total 600 / 600
Balance 575 / 575
[2023-10-18] MEDS: COREG 12.5 MG PO ×2 (11:11→20:34)
--- NOTE | 2023-10-18 13:29 | PTOTSP ---
Speech Therapy Speech/Language/Swallowing Assessment
Patient's language skills are grossly within functional limits for word finding, auditory comprehension, and sentence structure, However, responses in conversation are verbose, redundant, and tangential which is consistent with at least mild
cognitive communication deficits. Errors noted in short term memory/verbal recall.
Swallowing deemed within functional limits without overt signs of aspiration.
Recommend:
1. Continue Regular Solids and Thin Liquids
2. Comprehensive assessment of cognitive communication in next level of care as well as neuropsychological testing as this may assist in identifying and effectively treating specific cognitive communication deficits.
3. ST will follow during acute care stay to ensure diet tolerance, and further assess cognitive-communication as able.
--- NOTE | 2023-10-18 14:27 | EEG.RPT ---
Electroencephalogram Report
Recording
Date of EE10/18/23
Length of EEG recordin minutes
Recording Conditions: Awake and Drowsy
Hyperventilation Performed: No
Photic Stimulation Performed: Yes
Hand Dominance: Unknown
Report
LESS THAN 1 HOUR REPORT
LESS THAN 1 HOUR EEG INTERPRETATION:
Mildly abnormal EEG for age mild diffuse bihemispheric slowing
CLINICAL CORRELATION:
This study was suggestive of mild diffuse cortical dysfunction without focal abnormality. No seizures were recorded.
Clinical correlation is advised.
METHODS:
A 21 channel digitized electroencephalogram (EEG) was performed in the Clinical Neurophysiology Laboratory. The 10/20 international system of electrode placement was used with ECG and lateral/vertical eye movements recorded. Duration 25 minutes
QUALITY OF STUDY:
Good
ELECTROENCEPHALOGRAPHER IMPRESSION(S):
Background
During awake state there is mix of medium amplitude of alpha, theta, and delta activity seen
Posterior dominant rhythm of 10 Hz seen
There were no significant asymmetries of background activity noted.
Sleep
Drowsiness present
Photic Stimulation
Failed to activate the record
ECG
Normal sinus rhythm
[2023-10-18] MEDS: LOVENOX 40 MG SC (16:35)
--- NOTE | 2023-10-18 16:49 | CM ---
Patient with Dx TME Likely secondary to DTs, Alcohol use disorder, found by brother with signs of head trauma and confusion. MRI and EEG today. Psych Consult pending. MSAS.
PT; requires min assist for ambulation, a little unsteady on her feet, rec home with assistance.
OT rec skilled rehab.
Met with patient who resides alone in a 2 story house.
She has been independent in ADLs and ambulation.
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
DME - BP machine
No prior VN.
PCP - Ramu Soto
Pharmacy - [facility]
CM Consult: Substance Abuse
Patient states she has not been drinking Etoh for months. She says she stopped drinking on her own. She doesn't remember what happened to her before admission. Patient denies current issue with alcohol however states she is craving a martini, and
admits she may have been blacking out at home. She agrees to speak with LORENA.
Spoke with LORENA Krause; he wants to wait to talk with her after seen by Psych and requests CM re-contact at that time.
Plan re-referral to LORENA.
Plan continue to follow patient's mobility.
Plan TBD.
--- NOTE | 2023-10-18 17:10 | CON.MD ---
Consultation - Medical
-
53 yo F w/ PMH of HTN, HLD, hypothyroidism, & etoh abuse w/ fatty liver - presenting with possible PNA possibly due to aspiration. Presented to the hospital after being found unconscious by brother after not answering phone for several days, with
large ecchymosis on the left druze area which she does not know how she got. As per brother, pt abuses etoh & hoards with what sound like unsanitary living conditions.
Pt is difficult to interview as she is quite tangential and is noted to often confabulate (for example, describes being a 'neat freak' but neighbors keep sneaking into her house and making it dirty because they're 'slobs').
She initially denies drinking alcohol since july however after some further questioning says 'ok ok, maybe sometimes when I can't sleep I'll have a little something to do drink to calm my nerves'. Given brothers report and this, suspect she does
indeed continue to abuse etoh. SHe is also prescribed Ambien 10mg of which she fills 60 tablets monthly. She also admitted that she had [place] and has a 'personal stash' so she could take extra when
prescribed amount doesn't work. Also noted to confabulate here, that someone stole her identity to buy ambien online as there were apparently large amounts ordered (more than that she ordered for her 'personal stash'). Is also prescribed xanax
0.25mg.
EtOH/other sedative abuse
MSE: female, moderate eye contact, speech slow. Mood is OK, affect blunted. Denies si/hi/avh/delusions but notably confabulating. Thought process loose at times. Not oriented. Insight/judgement poor.
Continue MSAS + phenobarb
Should not be continuing benzo or ambien following discharge, it seems her family too does not want her to remain with her current PCP
Psychiatry will follow
--- NOTE | 2023-10-18 17:19 | W.PN.UPDATE ---
Update Note
Progress Note Update
MRI noted-area of gliosis
Chest x-ray cannot rule out pneumonia therefore we will add ceftriaxone and doxycycline. Add incentive spirometry also
Ultrasound of the abdomen for fatty liver no evidence of cholecystitis.
[2023-10-18] MEDS: STERILE WATER FOR INJECTION 10 ML IV (17:30)
[2023-10-18] MEDS: ROCEPHIN 1000 MG IV (17:30)
--- NOTE | 2023-10-18 18:04 | PTCARENOTE ---
Patient resting in bed comfortably no reports of hallucinations nor any withdraw symptoms present. Patient ambulated to rest room with one person assistance with walker. Patient orientation more lucid and able to answer questions appropriately.
Brother and his significant other Ehsan at bedside. Patient mother with be coming in from NH tomorrow morning to see patient. Patient wants her POC to be her brother.
[2023-10-18] MEDS: VIBRAMYCIN 100 MG PO (20:35)
--- NOTE | 2023-10-18 23:57 | PTCARENOTE ---
Received pt at change of shift. AAOx3. Very talkative and appears to have oriented conversation. MSAS 0-3 this shift. VSS at this time. Pt states shes starting to remember more but still unable to remember where the bruise on her face came from.
Resting in bed with call parker in reach.
[2023-10-19] VITALS (13 sets, daily range): BP systolic 99–160; BP diastolic 60–101; PULSE 87; BMI 25.2
[2023-10-19] MEDS: THIAMINE INJECTION 255 MG IV ×4 (02:10→23:49)
[2023-10-19] MEDS: SYNTHROID 50 MCG PO (04:11)
[2023-10-19 04:34] LABS: % Basophils 0.6 % (0-2); % Eosinophils 1.8 % (0-6); % Immature Granulocytes 0.4 % (0-0.5); % Lymphocytes 25.2 % (20.5-51.1); % Monocytes 9.9 % (1.7-9.3); % Neutrophils 62.1 % (42.2-75.2); Absolute Eosinophils 0.1 10^3/uL (0-0.7); Absolute Lymphocytes 1.8 10^3/uL (1.2-3.4); Absolute Monocytes 0.7 10^3/uL (0.1-0.6); Absolute Neutrophils 4.5 10^3/uL (1.4-6.5); Hematocrit 34.6 % (37.0-47.0); Mean Corp Hgb Conc. 34.7 g/dL (33.0-37.0); Mean Corpuscular Hgb 36.9 pg (27.0-31.0); Mean Corpuscular Volume 106.5 fL (81.0-99.0); Mean Platelet Volume 11.6 fL (7.4-10.4); Nucleated Red Blood Cells % 0 %; Platelet Count 255 10^3/uL (130-400); Red Blood Cell Count 3.25 10^6/uL (4.20-5.40); Red Cell Dist. Width 11.4 % (11.5-14.5); White Blood Cell Count 7.2 10^3/uL (4.8-10.8)
[2023-10-19 05:05] LABS: ALT (SGPT) 39 U/L (0-35); AST (SGOT) 37 U/L (14-36); Albumin 3.4 g/dl (3.5-5.0); Alkaline Phosphatase 84 U/L (38-126); Blood Urea Nitrogen 9 mg/dl (7-17); Calcium 9.3 mg/dl (8.4-10.2); Carbon Dioxide 24 mmol/L (22-30); Chloride 110 mmol/L (98-107); Estimated Creatinine Clearance 89 ml/min; Glucose 89 mg/dl (70-99); Potassium 3.5 mmol/L (3.5-5.1); Sodium 140 mmol/L (135-145); Total Bilirubin 0.5 mg/dl (0.2-1.3); eGFR > 60.00
[2023-10-19 08:02] LABS: Urine Albumin Negative (Neg - Trace); Urine Bilirubin Negative (Negative); Urine Character Clear (Clear); Urine Color Yellow; Urine Glucose Negative (Negative); Urine Ketone Negative (Negative); Urine Leukocyte Negative (Negative); Urine Nitrite Negative (Negative); Urine Occult Blood 2+ (Negative); Urine Specific Gravity 1.015 (<1.030); Urine Urobilinogen Negative (Neg - 1+)
[2023-10-19 08:20] LABS: Urine White Cell 0-2 /HPF (0-5)
[2023-10-19] MEDS: FOLVITE 1 MG PO (08:32)
[2023-10-19] MEDS: PHENOBARBITAL 97.5 MG IV (08:32)
[2023-10-19] MEDS: COREG 12.5 MG PO ×2 (08:32→10:05)
[2023-10-19] MEDS: VIBRAMYCIN 100 MG PO ×2 (08:32→20:14)
--- NOTE | 2023-10-19 09:07 | W.PN.HOSP.TC ---
Today's Communication/Plan
-
Pheno taper
PT OT
OK for pt to shower with assistance/supervision
Psyche eval
No more Ambien
Assessment / Plan
Assessment / Plan
Patient is more awake alert and oriented.
She does not quite know what happened to her but aware that she was confused. She stated that her phone was downstairs and the ring off therefore brother stopped by because he could not reach her. She stated that she has not been using alcohol for
a while (even though her GGT, LFTs were high). Patient admitted that she takes an Ambien at night and will take an extra Ambien when she wakes up from sleep in the middle of the night. She states that she is going through menopausal symptoms and
also has a long-term anxiety about the next day.
Ecchymosis on the left mosque area just in the lateral corner of the left eye
Cardiovascular system S1-S2 appreciated
Chest clear to auscultation
Abdomen soft nontender
Mild left upper extremity edema
Neuroexam is nonfocal ultrasound of the abdomen-normal appearance of the gallbladder, diffuse fatty liver, hepatic cyst, bilateral renal calcifications
Ultrasound of the abdomen-mild left calyceal dilatation without significant dilation of the left renal pelvis. No evidence of right sided pelvicalyceal dilatation. Pancreatic tail is unable to be visualized
Chest x-ray-right lower lobe atelectasis versus pneumonia
# TME
Likely secondary to Ambien use (Suspect upto 20 mg every day)
Alcohol withdrawal or alcohol in combination with accidental overdose of Ambien cannot be ruled out.
Patient also had Xanax 0.25 mg tablets at home which she stated that she does not use(urine drug screen in the ER did not have any benzos.)
Alcohol level 0 on admission
Cannot rule out other alcohol related brain injury
Check MRI of the brain with and without contrast
Phenobarbital taper, cut short as patient states that she has not been using alcohol heavily since July.
MSAS has been 0
Thiamine supplementation
MRI of the brain-no acute changes. Focus of gliosis
Patient should not be taking any more Ambien , hold Ambien-I discussed with the patient that she should stop this.
# Possible PNA Right side- Aspiration VS other- Short Course of AB
# Alcohol use disorder-thiamine
Check CDT
# Elevated transaminases secondary to alcohol use. NO RUQ Tenderness-fatty liver likely secondary to alcohol use
# Hypertension-increase Coreg to 25 g p.o. twice daily and hold Norvasc 5 mg
# Hyperlipidemia-hold off on atorvastatin with elevated LFTs-restart tomorrow
# Hypothyroidism-continue Synthroid. TSH stable
# Insomnia-Ambien should be held
# Microscopic hematuria-repeat urine analysis noted. Ultrasound of the kidneys noted follow-up as outpatient.
# DVT prophylaxis-Lovenox
# Full code
D/W RN at bed side
Patient is okay with me contacting brother and mother. Patient states that both her brother and mother will ' team up' and they do not want her to see her current PCP but wants her to go back to Dr. Nieves.
Patient also reports a lot of insomnia which may be secondary to her anxiety or depression. I will wait for psychiatry to evaluate her. I also discussed with the patient about following up with speech sleep specialist to diagnose her sleep problem
rather than taking Ambien.
Spoke to Brother who said that pt had empty bottles of alcohol. But he is not sure if she has been drinking . He did not see any open bottles.
D/W Neuro - No further W/U re MRI
Called PCP . He is not in the office today. ,Off today. Spoke to PRODUCT BUILDER Anastasia Barajas
Dr Soto is her PCP-
Pt said she wasn't drinking alcohol in February when ran CDT in feb was positive
Last week patient saw his partner . Reportedly patient wanted to be seen because she felt she was confused however she was very agitated and anxious on arrival to the office.
Labs were obtained AST 106 ALT 136 on October 09 nt. She was advised to follow-up in a week and she had not come back.
I reviewed with Givens that patient was admitted with confusion and that we suspect this could be from Ambien. I cannot make sure that she was not using alcohol on top of that.
But discussed that we recommend that she not take any more Ambien.
PDMP shows she was filling prescriptions every month for 60 , ten mg tablets. I suspect she was taking 20 mg Ambien everynight in split doses. I shared my concern. willpass this on to .
Brother says they brought bottles of meds in .
Spoke to Pharmacy , pt has
Xanax 0.25 tables - 15 tablets .
Ambien 10 mg tabs- 12 whole and 3 half tables in the bottle.
Last filled on 09/18/23 and she has been here since 09/15
She used 46.5 tablets in less than a month .
time spent 65 min
Anticipated Discharge: > 48 hours
Subjective/Interval History
-
Date of Service: October 19, 2023
Objective Data
-
Labs:
Laboratory Results
10/19/23
04:09
WBC 7.2
Hgb 12.0
Hct 34.6 L
Plt Count 255
Sodium 140
Potassium 3.5
Chloride 110 H
Carbon Dioxide 24
BUN 9
Creatinine 0.5 L
Glucose 89
Calcium 9.3
Total Bilirubin 0.5
AST 37 H
ALT 39 H
Alkaline Phosphatase 84
Vital Signs:
Vital Signs
Temp Pulse Resp BP Pulse Ox
97.7 F 85 18 148/98 97
10/19/23 07:21 10/19/23 08:32 10/19/23 06:00 10/19/23 08:32 10/19/23 06:00
I&O
04/25/24 04/26/24 04/27/24
06:59 06:59 06:59
Intake Total 1175 / 1175
Output Total 600 / 600 600 / 600
Balance 575 / 575 -600 / -600
--- NOTE | 2023-10-19 10:00 | PTCARENOTE ---
Received pt in bed, assisted to BSC and then chair. Pt very weak and unsteady. NSR on monitor. VSS. MSAS 0. Appetite good. c/o feeling slightly constipated, Senokot given, see MAR. Pt calm and cooperative.
[2023-10-19 10:26] LABS: HCG, Serum Qualitative Screen Negative
[2023-10-19] MEDS: SENOKOT-S 1 TABLET PO (13:11)
--- NOTE | 2023-10-19 13:15 | W.PN.NEURO.1 ---
Today's Communication / Plan
-
-Continue thiamine and folate
-Agree needs to no longer take any Ambien
-No indications at this point for chronic antiseizure medications
-Not going to recommend aspirin but would continue treatments for hypertension and hyperlipidemia
-Follow mental status
-Tylenol for headache
Will follow as needed call with questions and concerns
Neuro Assessment/Plan
Assessment
53-year-old woman presenting the hospital with being found confused and with signs of trauma at home after not being heard from from her family for a couple of weeks
Previous history of heavy alcohol use
Suspicion for excessive amounts of Ambien being taken at home is partly responsible for her presentation
Brain MRI do not feel represents demyelinating disease much more likely represents ischemic microangiopathy given hypertension and hyperlipidemia history
Much improved mental status
Subjective/Objective
Subjective Data
Date of Service: October 19, 2023
Patient awake and interactive, has some headache, discussed MRI findings
Objective Data
Vital Signs
Temp Pulse Resp BP Pulse Ox
99.7 F 90 18 119/80 95
10/19/23 11:56 10/19/23 10:05 10/19/23 06:00 10/19/23 10:05 10/19/23 10:36
Lab Results
10/19/23 04:09
10/19/23 04:09
PT 15.1 Sec (11.4-14.6) H 10/17/23 17:58
INR 1.18 10/17/23 17:58
APTT 26.7 Sec (23.4-35.0) 10/17/23 17:58
Sodium 140 mmol/L (135-145) 10/19/23 04:09
Potassium 3.5 mmol/L (3.5-5.1) 10/19/23 04:09
BUN 9 mg/dl (7-17) 10/19/23 04:09
Glucose 89 mg/dl (70-99) 10/19/23 04:09
Calcium 9.3 mg/dl (8.4-10.2) 10/19/23 04:09
Phosphorus 4.1 mg/dl (2.5-4.5) 10/17/23 22:06
Vitamin B12 727 pg/ml (239-931) 10/18/23 04:58
Ur Buprenorphine Negative (Negative) 10/17/23 13:59
Patient Allergies
erythromycin base [Erythromycin Base] Allergy (Verified 12/04/22 13:38)
Hives
Review of Systems
-
History Source: Patient
All other systems: Reviewed and negative
Constitutional: No Symptoms
EENT: Other (Left head bruising)
Respiratory: No Symptoms
Cardiac: No Symptoms
Abdomen/GI: No Symptoms
Genitourinary: No Symptoms
Musculoskeletal: No Symptoms
Skin: No Symptoms
Neuro: See existing Neuro Note
Endocrine: No Symptoms
Hematologic / Lymphatic: No Symptoms
Allergy / Immunology: No Symptoms
Physical Exam
-
General: Comfortable
Eyes: No Ptosis
HEENT: Normocephalic
Neck: No Bruits Bilaterally
Respiratory: Clear to Auscultation
Cardiac: Regular Rhythm
GI: Normal Bowel Sounds
Skin: Unremarkable
Extremities: No Clubbing
Psych: Unremarkable
Extended Neurological Exam
Mood & Affect: Mood Unremarkable and Affect Unremarkable
Attention Span & Concentration: Awake, Alert and Interactive
Memory: Reduced
Tremor: Hand Tremor Absent
Involuntary Movement: None
Speech: Quality Unremarkable and Quantity Unremarkable; Negative Expressive Aphasia, Receptive Aphasia or Dysarthric
Cranial Nerve II: Left Eye: Pupillary Reactivity Unremarkable and Pupillary Size Unremarkable
Cranial Nerve II: Right Eye: Pupillary Reactivity Unremarkable and Pupillary Size Unremarkable
Cranial Nerves III, IV, : Extraocular Movement: Extraocular Movement Full in all Directions
Cranial Nerve VII: Facial Symmetry: Normal Facial Symmetry
Cranial Nerves IX, X: Palate Movement: Palate Elevation Symmetric
Muscle Strength, Overall: Full Throughout
Pronator Drift: No Drift in Upper Extremities
--- NOTE | 2023-10-19 15:14 | W.PN.UPDATE ---
Update Note
Progress Note Update
Pt seen & evaluated at bedside. Sitting up in chair, no significant difference from yesterday - continues to confabulate, not oriented, poor insight, does not remember speaking with me yesterday. Complaining of muscle aches all over and feeling
swollen, on left side in particular. Does indeed appear a bit more edematous in left arm, same side as bruise on face - quite possible due to being down on left side for what may have been 2 or more days.
No overt AVH or delusions noted.
Continue MSAS + phenobarb taper
ordered CK
[2023-10-19] MEDS: LUMINAL 64.7999999999999972 MG PO ×2 (16:48→22:14)
--- NOTE | 2023-10-19 17:47 | CM ---
Patient with Dx TME Likely secondary to Ambien use, Alcohol withdrawal or alcohol in combination with accidental OD Ambien, Possible PNA. Psych Consult noted. MSAS. PT rec home w/ assistance. OT rec skilled rehab.
Spoke with Ry CARRILLO; he met with the patient today. She had some auditory hallucinations while he was in the room which he reported to patient's nurse. The patient admitted to taking Ativan as well as drinking 3 vodka martinis/day. She agreed
to outpatient Drug/Etoh program with [facility] or [facility] & he provided written information.
Plan continue to follow patient's mobility.
Plan home with referrals to outpatient Drug/Etoh program at [facility] or [facility].
[2023-10-19] MEDS: LOVENOX 40 MG SC (17:53)
[2023-10-19] MEDS: ROCEPHIN 1000 MG IV (17:53)
[2023-10-19] MEDS: STERILE WATER FOR INJECTION 10 ML IV (17:54)
[2023-10-19] MEDS: COREG 25 MG PO (20:14)
[2023-10-19] MEDS: ATIVAN 0.5 MG PO (20:47)
[2023-10-19] MEDS: FLUSH (NSS) 2 FLUSH IV (23:50)
[2023-10-20] VITALS (13 sets, daily range): BP systolic 107–164; BP diastolic 68–102
[2023-10-20 03:45] LABS: % Basophils 0.5 % (0-2); % Eosinophils 2.3 % (0-6); % Immature Granulocytes 0.3 % (0-0.5); % Lymphocytes 32.1 % (20.5-51.1); % Monocytes 9.1 % (1.7-9.3); % Neutrophils 55.7 % (42.2-75.2); Absolute Eosinophils 0.2 10^3/uL (0-0.7); Absolute Lymphocytes 2.4 10^3/uL (1.2-3.4); Absolute Monocytes 0.7 10^3/uL (0.1-0.6); Absolute Neutrophils 4.1 10^3/uL (1.4-6.5); Hematocrit 32.5 % (37.0-47.0); Hemoglobin 11.7 g/dL (12.0-16.0); Mean Corpuscular Hgb 38.9 pg (27.0-31.0); Mean Platelet Volume 11.9 fL (7.4-10.4); Nucleated Red Blood Cells % 0 %; Platelet Count 268 10^3/uL (130-400); Red Blood Cell Count 3.01 10^6/uL (4.20-5.40); Red Cell Dist. Width 11.5 % (11.5-14.5); White Blood Cell Count 7.3 10^3/uL (4.8-10.8)
[2023-10-20 04:05] LABS: ALT (SGPT) 33 U/L (0-35); AST (SGOT) 28 U/L (14-36); Albumin 3.4 g/dl (3.5-5.0); Alkaline Phosphatase 89 U/L (38-126); Blood Urea Nitrogen 11 mg/dl (7-17); Calcium 9.7 mg/dl (8.4-10.2); Carbon Dioxide 26 mmol/L (22-30); Chloride 108 mmol/L (98-107); Creatine Phosphokinase 281 U/L (30-135); Estimated Creatinine Clearance 89 ml/min; Glucose 95 mg/dl (70-99); Potassium 3.9 mmol/L (3.5-5.1); Sodium 140 mmol/L (135-145); Total Bilirubin 0.3 mg/dl (0.2-1.3); eGFR > 60.00
[2023-10-20 04:40] LABS: Hepatitis B Surface Antigen Negative (Negative)
[2023-10-20 04:46] LABS: Hepatitis A IgM Antibody Negative (Negative); Hepatitis B Core Ab, IgM Negative (Negative)
[2023-10-20 04:57] LABS: Hepatitis B Core Ab, Total Negative (Negative); Hepatitis B Surface Antibody Negative; Hepatitis C Antibody Negative (Negative)
[2023-10-20 05:06] LABS: Hepatitis A Antibody, Total Negative (Negative)
--- NOTE | 2023-10-20 05:17 | PTCARENOTE ---
Patient ambulated to bathroom with Ax1 several times this shift. She had a moderate formed BM. MSAS 0. NSR on tele. She is resting quietly at this time.
[2023-10-20] MEDS: SYNTHROID 50 MCG PO (06:03)
--- NOTE | 2023-10-20 08:43 | W.PN.HOSP.TC ---
Addendum entered and electronically signed by Venkata Alanis MD 10/20/23 09:03:
Norvasc added.
Statin restarted
Original Note:
Today's Communication/Plan
-
Pheno taper
Encourage OOB
Add Melatonin HS
Assessment / Plan
Assessment / Plan
Patient is more awake alert .
She does not quite know what happened to her but aware that she was confused. She stated that her phone was downstairs and the ring off therefore brother stopped by because he could not reach her. She stated that she has not been using alcohol for
a while (even though her GGT, LFTs were high). Patient admitted that she takes an Ambien at night and will take an extra Ambien when she wakes up from sleep in the middle of the night. She states that she is going through menopausal symptoms and
also has a long-term anxiety about the next day.
Ecchymosis on the left christian area just in the lateral corner of the left eye
Cardiovascular system S1-S2 appreciated
Chest clear to auscultation
Abdomen soft nontender
Mild left upper extremity edema
Neuroexam is nonfocal ultrasound of the abdomen-normal appearance of the gallbladder, diffuse fatty liver, hepatic cyst, bilateral renal calcifications
Ultrasound of the abdomen-mild left calyceal dilatation without significant dilation of the left renal pelvis. No evidence of right sided pelvicalyceal dilatation. Pancreatic tail is unable to be visualized
Chest x-ray-right lower lobe atelectasis versus pneumonia
# TME
Likely secondary to Ambien use (Suspect upto 20 mg every day)
Alcohol withdrawal or alcohol in combination with accidental overdose of Ambien possible.
Patient also had Xanax 0.25 mg tablets at home which she stated that she does not use(urine drug screen in the ER did not have any benzos.)
Alcohol level 0 on admission
Phenobarbital taper
MSAS has been 0
Thiamine supplementation
MRI of the brain-no acute changes. Focus of gliosis
EEG no SZ
Patient should not be taking any more Ambien , hold Ambien-I discussed with the patient that she should stop this.
# Possible PNA Right side- Aspiration VS other- Short Course of AB
# Alcohol use disorder-thiamine
Check CDT
# Elevated transaminases secondary to alcohol use. NO RUQ Tenderness-fatty liver likely secondary to alcohol use
# Hypertension-increase Coreg to 25 g p.o. twice daily and hold Norvasc 5 mg
# Hyperlipidemia-hold off on atorvastatin with elevated LFTs-restart tomorrow
# Hypothyroidism-continue Synthroid. TSH stable
# Insomnia-Ambien should be held. Melatonin added as she says she has not slept.
# Microscopic hematuria-repeat urine analysis noted. Ultrasound of the kidneys noted follow-up as outpatient.
# DVT prophylaxis-Lovenox
# Full code
10/18/26
'Patient is okay with me contacting brother and mother. Patient states that both her brother and mother will ' team up' and they do not want her to see her current PCP but wants her to go back to Dr. Nieves.
Patient also reports a lot of insomnia which may be secondary to her anxiety or depression. I will wait for psychiatry to evaluate her. I also discussed with the patient about following up with speech sleep specialist to diagnose her sleep problem
rather than taking Ambien. Spoke to Brother who said that pt had empty bottles of alcohol. But he is not sure if she has been drinking . He did not see any open bottles.
Called PCP . He is not in the office today. ,Off today. Spoke to BUILDING RENTAL SUPERINTENDENT Anastasia Barajas
Dr Soto is her PCP-
Pt said she wasn't drinking alcohol in February when ran CDT in feb was positive
Last week patient saw his partner . Reportedly patient wanted to be seen because she felt she was confused however she was very agitated and anxious on arrival to the office.
Labs were obtained AST 106 ALT 136 on October 09 nt. She was advised to follow-up in a week and she had not come back.
I reviewed with Karl that patient was admitted with confusion and that we suspect this could be from Ambien. I cannot make sure that she was not using alcohol on top of that.
But discussed that we recommend that she not take any more Ambien.
PDMP shows she was filling prescriptions every month for 60 , ten mg tablets. I suspect she was taking 20 mg Ambien everynight in split doses. I shared my concern. willpass this on to .
Brother says they brought bottles of meds in .
Spoke to Pharmacy , pt has
Xanax 0.25 tables - 15 tablets .
Ambien 10 mg tabs- 12 whole and 3 half tables in the bottle.
Last filled on 09/18/23 and she has been here since 09/15
She used 46.5 tablets in less than a month . '
Anticipated Discharge: > 48 hours
Subjective/Interval History
-
Date of Service: October 20, 2023
Objective Data
-
Labs:
Laboratory Results
10/20/23
03:20
WBC 7.3
Hgb 11.7 L
Hct 32.5 L
Plt Count 268
Sodium 140
Potassium 3.9
Chloride 108 H
Carbon Dioxide 26
BUN 11
Creatinine 0.6
Glucose 95
Calcium 9.7
Total Bilirubin 0.3
AST 28
ALT 33
Alkaline Phosphatase 89
Vital Signs:
Vital Signs
Temp Pulse Resp BP Pulse Ox
98.6 F 79 20 157/91 97
10/20/23 07:29 10/20/23 06:03 10/20/23 03:08 10/20/23 06:03 10/20/23 03:08
I&O
10/19/23 10/20/23 10/21/23
06:59 06:59 06:59
Intake Total 2265 / 2265
Output Total 600 / 600 600 / 600
Balance -600 / -600 1665 / 1665
[2023-10-20] MEDS: THIAMINE INJECTION 255 MG IV ×2 (08:50→16:40)
[2023-10-20] MEDS: VIBRAMYCIN 100 MG PO ×2 (08:51→20:31)
[2023-10-20] MEDS: LUMINAL 64.7999999999999972 MG PO ×3 (08:51→21:08)
[2023-10-20] MEDS: NORVASC 5 MG PO (08:51)
[2023-10-20] MEDS: COREG 25 MG PO ×2 (08:51→20:31)
[2023-10-20] MEDS: FOLVITE 1 MG PO (08:52)
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
[2023-10-20] MEDS: LOVENOX 40 MG SC (17:52)
[2023-10-20] MEDS: LIPITOR 20 MG PO (17:52)
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
[2023-10-20] MEDS: ROCEPHIN 1000 MG IV (18:39)
[2023-10-20] MEDS: STERILE WATER FOR INJECTION 10 ML IV (18:40)
[2023-10-20] MEDS: SEROQUEL 50 MG PO (21:08)
[2023-10-20] MEDS: MELATONIN 5 MG PO (21:08)
--- NOTE | 2023-10-20 22:16 | PTCARENOTE ---
This RN cannot verify accuracy of VS prior to 19:45. Pt is AAOx3, anxious and irritated that her normal routine has been disrupted. pt repeatedly reports that monitoring equipment will prevent her from sleeping. Teaching and support provided. Pt
provided with eye mask, ear plugs. Ambulating with assistx1 to bathroom to void. Call parker within reach
[2023-10-21] VITALS (13 sets, daily range): BP systolic 105–144; BP diastolic 56–88
--- NOTE | 2023-10-21 03:30 | PTCARENOTE ---
Pt woke to use the bathroom, stated that she felt 'off'. When questioned further about this feeling, pt kept repeating that she 'didn't feel like herself' but denied dizziness/lightheadedness and was able to ambulate to bathroom with assistx1. Pt
denies other complaints at this time. Assessment and VS as documented.
[2023-10-21] MEDS: SYNTHROID 50 MCG PO (05:15)
[2023-10-21 05:43] LABS: % Basophils 0.4 % (0-2); % Eosinophils 2.8 % (0-6); % Immature Granulocytes 0.3 % (0-0.5); % Lymphocytes 29.5 % (20.5-51.1); % Monocytes 8.8 % (1.7-9.3); % Neutrophils 58.2 % (42.2-75.2); Absolute Eosinophils 0.2 10^3/uL (0-0.7); Absolute Lymphocytes 2.1 10^3/uL (1.2-3.4); Absolute Monocytes 0.6 10^3/uL (0.1-0.6); Absolute Neutrophils 4.2 10^3/uL (1.4-6.5); Hematocrit 30.3 % (37.0-47.0); Hemoglobin 11.3 g/dL (12.0-16.0); Mean Corp Hgb Conc. 37.3 g/dL (33.0-37.0); Mean Corpuscular Hgb 39.4 pg (27.0-31.0); Mean Corpuscular Volume 105.6 fL (81.0-99.0); Mean Platelet Volume 11.1 fL (7.4-10.4); Nucleated Red Blood Cells % 0 %; Platelet Count 273 10^3/uL (130-400); Red Blood Cell Count 2.87 10^6/uL (4.20-5.40); Red Cell Dist. Width 11.6 % (11.5-14.5); White Blood Cell Count 7.2 10^3/uL (4.8-10.8)
[2023-10-21 06:33] LABS: ALT (SGPT) 26 U/L (0-35); AST (SGOT) 27 U/L (14-36); Albumin 3.5 g/dl (3.5-5.0); Alkaline Phosphatase 76 U/L (38-126); Blood Urea Nitrogen 17 mg/dl (7-17); Calcium 10.2 mg/dl (8.4-10.2); Carbon Dioxide 25 mmol/L (22-30); Chloride 105 mmol/L (98-107); Estimated Creatinine Clearance 89 ml/min; Glucose 101 mg/dl (70-99); Magnesium 1.8 mg/dl (1.6-2.3); Sodium 138 mmol/L (135-145); Total Bilirubin 0.3 mg/dl (0.2-1.3); eGFR > 60.00
[2023-10-21 06:59] LABS: Folate 10.8 ng/ml (2.76-20)
[2023-10-21] MEDS: VIBRAMYCIN 100 MG PO ×2 (08:27→19:11)
[2023-10-21] MEDS: FOLVITE 1 MG PO (08:28)
[2023-10-21] MEDS: LUMINAL 64.7999999999999972 MG PO (08:28)
[2023-10-21] MEDS: VITAMIN B1 200 MG PO (08:28)
[2023-10-21] MEDS: COREG 25 MG PO ×2 (08:28→19:12)
--- NOTE | 2023-10-21 09:01 | W.PN.HOSP.TC ---
Today's Communication/Plan
-
pheno taper
Norvasc
Assessment / Plan
Assessment / Plan
Patient is more awake alert .
She does not quite know what happened to her but aware that she was confused. She stated that her phone was downstairs and the ring off therefore brother stopped by because he could not reach her. She stated that she has not been using alcohol for
a while (even though her GGT, LFTs were high). Patient admitted that she takes an Ambien at night and will take an extra Ambien when she wakes up from sleep in the middle of the night. She states that she is going through menopausal symptoms and
also has a long-term anxiety about the next day.
Ecchymosis on the left baptism area just in the lateral corner of the left eye
Cardiovascular system S1-S2 appreciated
Chest clear to auscultation
Abdomen soft nontender
Mild left upper extremity edema
Neuroexam is nonfocal ultrasound of the abdomen-normal appearance of the gallbladder, diffuse fatty liver, hepatic cyst, bilateral renal calcifications
Ultrasound of the abdomen-mild left calyceal dilatation without significant dilation of the left renal pelvis. No evidence of right sided pelvicalyceal dilatation. Pancreatic tail is unable to be visualized
Chest x-ray-right lower lobe atelectasis versus pneumonia
Always lying on the left side despite complaining of edema left arm. Advised to switch sides and elevate arm
# TME
Likely secondary to Ambien use (Suspect upto 20 mg every day)
Alcohol withdrawal or alcohol in combination with accidental overdose of Ambien possible.
Patient also had Xanax 0.25 mg tablets at home which she stated that she does not use(urine drug screen in the ER did not have any benzos.)
Alcohol level 0 on admission
Phenobarbital taper
MSAS has been 0
Thiamine supplementation
MRI of the brain-no acute changes. Focus of gliosis
EEG no SZ
Patient should not be taking any more Ambien , hold Ambien-I discussed with the patient that she should stop this.
# Possible PNA Right side- Aspiration VS other- Short Course of AB
# Alcohol use disorder-thiamine
Check CDT (Pending)
# Elevated transaminases secondary to alcohol use. NO RUQ Tenderness-fatty liver likely secondary to alcohol use
# Hypertension-Coreg to 25 g p.o. twice daily and hold Norvasc 5 mg
# Hyperlipidemia-atorvastatin
# Hypothyroidism-continue Synthroid. TSH stable
# Insomnia-Ambien should be held. Melatonin added as she says she has not slept.
Per nursing Seroquel worked and pt slept. She says ' not enough'
# Microscopic hematuria-repeat urine analysis noted. Ultrasound of the kidneys noted follow-up as outpatient.
# DVT prophylaxis-Lovenox
# Full code
10/18/26
'Patient is okay with me contacting brother and mother. Patient states that both her brother and mother will ' team up' and they do not want her to see her current PCP but wants her to go back to Dr. Nieves.
Patient also reports a lot of insomnia which may be secondary to her anxiety or depression. I will wait for psychiatry to evaluate her. I also discussed with the patient about following up with speech sleep specialist to diagnose her sleep problem
rather than taking Ambien. Spoke to Brother who said that pt had empty bottles of alcohol. But he is not sure if she has been drinking . He did not see any open bottles.
Called PCP . He is not in the office today. ,Off today. Spoke to CERAMIC WORKER Anastasia Barajas
Dr Soto is her PCP-
Pt said she wasn't drinking alcohol in February when ran CDT in feb was positive
Last week patient saw his partner . Reportedly patient wanted to be seen because she felt she was confused however she was very agitated and anxious on arrival to the office.
Labs were obtained AST 106 ALT 136 on October 09 nth. She was advised to follow-up in a week and she had not come back.
I reviewed with Karl that patient was admitted with confusion and that we suspect this could be from Ambien. I cannot make sure that she was not using alcohol on top of that.
But discussed that we recommend that she not take any more Ambien.
PDMP shows she was filling prescriptions every month for 60 , ten mg tablets. I suspect she was taking 20 mg Ambien everynight in split doses. I shared my concern. willpass this on to .
Brother says they brought bottles of meds in .
Spoke to Pharmacy , pt has
Xanax 0.25 tables - 15 tablets .
Ambien 10 mg tabs- 12 whole and 3 half tables in the bottle.
Last filled on 09/18/23 and she has been here since 09/15
She used 46.5 tablets in less than a month . '
Anticipated Discharge: 24 - 48 hours
Subjective/Interval History
-
Date of Service: October 21, 2023
Objective Data
-
Labs:
Laboratory Results
10/21/23
05:23
WBC 7.2
Hgb 11.3 L
Hct 30.3 L
Plt Count 273
Sodium 138
Potassium 4.0
Chloride 105
Carbon Dioxide 25
BUN 17
Creatinine 0.5 L
Glucose 101 H
Calcium 10.2
Total Bilirubin 0.3
AST 27
ALT 26
Alkaline Phosphatase 76
Vital Signs:
Vital Signs
Temp Pulse Resp BP Pulse Ox
98.3 F 73 9 134/88 98
10/21/23 08:00 10/21/23 08:28 10/21/23 08:01 10/21/23 08:28 10/20/23 22:39
I&O
10/20/23 10/21/23 10/22/23
06:59 06:59 06:59
Intake Total 2265 / 2265 960 / 960
Output Total 600 / 600 350 / 350
Balance 1665 / 1665 610 / 610
--- NOTE | 2023-10-21 11:38 | W.PN.UPDATE ---
Update Note
Progress Note Update
patient seen chart reviewed. spoke with nursing. the patient reported a number of issues. she did not like how the seroquel made her feel. it did not help w sleep and she felt ''. discussed alternatives and readdressed the negatives of 20 mg
elviaien. she agrees to try remeron which might help w sleep anxiety and dysphoria. she does seem dysphoric although not suicidal. she complained that she is not getting enough to eat and that the kitchen does not provide her with what she orders.
dietary consult requested. she is worried about what appears to be inflammation from infiltrated iv. discussed w nursing ice or heat. patient beset w concerns that being here will keep her from getting things done at home. eg bills etc.
encouraged her to take this time to pull back and reassess the decisions she made (re rivka particularly) and regroup. recommended she have sleep study after dc and seek out psychiatric consultation for prescribing and therapy. continue phenobarb
detox. has not required ativan as per msas.
--- NOTE | 2023-10-21 13:06 | PTCARENOTE ---
Assumed care of patient at beginning of this shift from previous RN. Patient Ox3 but anxious, requesting to shower. Dr Alanis gave order ok to shower; patient now prefers to wait until her mother comes in with her supplies. See worklist for full
assessment and vital signs; see MAR for med administration.
--- NOTE | 2023-10-21 15:18 | CHAP ---
Ms. Glasgow had a depressed demeanor, sitting in her chair with paperwork before her. She shared a list of troubles. Provided emotional and spiritual support, encouraging her to reflect on the presence of love in her life, and to stay connected
with her spiritual center.
[2023-10-21] MEDS: LUMINAL 32.3999999999999986 MG PO ×2 (16:41→20:47)
[2023-10-21] MEDS: STERILE WATER FOR INJECTION 10 ML IV (17:11)
[2023-10-21] MEDS: ROCEPHIN 1000 MG IV (17:11)
[2023-10-21] MEDS: LIPITOR 20 MG PO (17:11)
[2023-10-21] MEDS: LOVENOX 40 MG SC (17:11)
[2023-10-21] MEDS: MELATONIN 5 MG PO (20:47)
[2023-10-21] MEDS: REMERON 15 MG PO (20:47)
--- NOTE | 2023-10-21 21:49 | PTCARENOTE ---
Pt ambulates with assistx1 to bathroom. Pt remains anxious regarding change in routine and appears frustrated that she remains on monitoring equipment. Teaching provided. Pt expresses anxiety about not being able to fall asleep. Treatment plan
discussed, including new med remeron per AUG. Pt agreeable. Call parker within reach.
[2023-10-22] VITALS (11 sets, daily range): BP systolic 108–153; BP diastolic 65–91; BMI 24.6
[2023-10-22] MEDS: SYNTHROID 50 MCG PO (05:41)
[2023-10-22] MEDS: VITAMIN B1 200 MG PO (09:54)
[2023-10-22] MEDS: VIBRAMYCIN 100 MG PO ×2 (09:54→19:48)
[2023-10-22] MEDS: COREG 25 MG PO ×2 (09:54→19:48)
[2023-10-22] MEDS: LUMINAL 32.3999999999999986 MG PO ×3 (09:54→21:30)
[2023-10-22] MEDS: FOLVITE 1 MG PO (09:54)
--- NOTE | 2023-10-22 09:56 | W.PN.HOSP.TC ---
Today's Communication/Plan
-
see bold
Assessment / Plan
Assessment / Plan
Gen: NAD, Awake and alert
Eyes: EOMI, PERRLA, no scleral icterus.
Neck: supple.
CV: RRR, +S1/S2, no m/r/g.
Resp: CTAB, no rales, wheezes, or rhonchi.
Abd: +BS, soft, NT, ND
Skin: No rashes.
Neuro: CN 2-12 intact, non-focal.
Psych: Normal mood and affect.
Abd U/S: Normal appearance of the gallbladder with no evidence for biliary ductal dilation. Diffuse fatty infiltration of the liver. Hepatic cysts. Bilateral renal calcifications, which likely represent nephroliths. Mild left calyceal dilation,
without significant dilation of the left renal pelvis. No evidence for right-sided pelvicalyceal dilation.
CXR: Right lower lobe volume loss with atelectasis versus pneumonia and possible subpulmonic small effusion.
MRI brain: No acute intracranial abnormality noted. A prominent nonenhancing T2/FLAIR hyperintense left parietal lobe lesion may reflect a focus of gliosis or demyelinating lesion.
LUE U/S: No sonographic evidence for left upper extremity venous thrombosis.
Acute toxic metabolic encephalopathy:
-underlying EtOH abuse disorder
-due to Ambien and likely EtOH (with possible EtOH W/D)
-UDS NEG
-EtOH level 0 on admission
-cont phenobarbital taper
-Continue thiamine/folate
-Elevated transaminases due to alcohol abuse disorder, now resolved
Possible RLL PNA:
-possible aspiration
-cont Rocephin/Doxy
Other problems:
Essential Hypertension: cont Coreg
Hyperlipidemia: cont statin
Hypothyroidism: cont Synthroid
Insomnia: cont Melatonin
Microscopic hematuria: outpt follow up
FULL/Lovenox
Anticipated Discharge: Within 24 hours
Subjective/Interval History
-
Date of Service: October 22, 2023
Denies CP/SOB. 'I'm not with it mentally because I'm not sleeping.'
Objective Data
-
Vital Signs:
Vital Signs
Temp Pulse Resp BP Pulse Ox
98.4 F 74 19 136/79 99
10/22/23 07:10 10/22/23 04:00 10/22/23 04:00 10/22/23 02:00 10/21/23 20:53
I&O
10/21/23 10/22/23 10/23/23
06:59 06:59 06:59
Intake Total 960 / 960 480 / 480
Output Total 350 / 350
Balance 610 / 610 480 / 480
[2023-10-22] MEDS: STERILE WATER FOR INJECTION 10 ML IV (17:05)
[2023-10-22] MEDS: ROCEPHIN 1000 MG IV (17:05)
[2023-10-22] MEDS: LOVENOX 40 MG SC (17:05)
[2023-10-22] MEDS: LIPITOR 20 MG PO (17:06)
[2023-10-22] MEDS: REMERON 15 MG PO (21:31)
[2023-10-22] MEDS: MELATONIN 5 MG PO (21:31)
--- NOTE | 2023-10-23 00:23 | PTCARENOTE ---
Patient arrived from IMU via wheelchair at approximately 2030. Patient ambulated from wheelchair to bed x1 assist - gait steady. Patient AAOx3, speech slow. VSS as documented. Assessment as documented. Patient oriented to room. Bed in lowest
position. Call parker within reach.
[2023-10-23] MEDS: SYNTHROID 50 MCG PO (05:19)
--- NOTE | 2023-10-23 07:56 | W.PN.HOSP.TC ---
Today's Communication/Plan
-
d/c
Assessment / Plan
Assessment / Plan
Gen: NAD, Awake and alert
Eyes: EOMI, PERRLA, no scleral icterus.
Neck: supple.
CV: remains RRR, +S1/S2, no m/r/g.
Resp: remains CTAB, no rales, wheezes, or rhonchi.
Abd: remains +BS, soft, NT, ND
Skin: No rashes.
Neuro: CN 2-12 intact, non-focal.
Psych: Normal mood and affect.
Abd U/S: Normal appearance of the gallbladder with no evidence for biliary ductal dilation. Diffuse fatty infiltration of the liver. Hepatic cysts. Bilateral renal calcifications, which likely represent nephroliths. Mild left calyceal dilation,
without significant dilation of the left renal pelvis. No evidence for right-sided pelvicalyceal dilation.
CXR: Right lower lobe volume loss with atelectasis versus pneumonia and possible subpulmonic small effusion.
MRI brain: No acute intracranial abnormality noted. A prominent nonenhancing T2/FLAIR hyperintense left parietal lobe lesion may reflect a focus of gliosis or demyelinating lesion.
LUE U/S: No sonographic evidence for left upper extremity venous thrombosis.
Acute toxic metabolic encephalopathy:
-underlying EtOH abuse disorder
-due to Ambien and likely EtOH (with possible EtOH W/D)
-UDS NEG
-EtOH level 0 on admission
-cont phenobarbital taper
-Continue thiamine/folate
-Elevated transaminases due to alcohol abuse disorder, now resolved
Possible RLL PNA:
-possible aspiration
-stop Rocephin/Doxy (completed 5 days)
Other problems:
Essential Hypertension: cont Coreg
Hyperlipidemia: cont statin
Hypothyroidism: cont Synthroid
Insomnia: cont Melatonin
Microscopic hematuria: outpt follow up
FULL/Lovenox
Medically cleared for d/c.
Total time spent on d/c = 31 min. This included today's physical exam, progress note, review of laboratory and diagnostic data, preparation of discharge documents and prescriptions, and discussions about the pt's hospital course and discharge plan
with the patient and other manager medical device involved in the patient's care.
Anticipated Discharge: Today
Subjective/Interval History
-
Date of Service: October 23, 2023
No new complaints.
Objective Data
-
Vital Signs:
Vital Signs
Temp Pulse Resp BP Pulse Ox
98.2 F 76 16 120/73 95
10/22/23 23:30 10/22/23 23:30 10/22/23 23:30 10/22/23 23:30 10/22/23 23:30
I&O
10/22/23 10/23/23 10/24/23
06:59 06:59 06:59
Intake Total 480 / 480 480 / 480
Balance 480 / 480 480 / 480
[2023-10-23 08:00] VITALS: BP 122/75
[2023-10-23] MEDS: LUMINAL 32.3999999999999986 MG PO (09:06)
[2023-10-23] MEDS: FOLVITE 1 MG PO (09:07)
[2023-10-23] MEDS: COREG 25 MG PO (09:08)
[2023-10-23] MEDS: VITAMIN B1 200 MG PO (09:09)
[2023-10-23] MEDS: VIBRAMYCIN PO (09:15)
--- NOTE | 2023-10-23 09:59 | CM ---
Reviewed the chart notes and spoke with the patient at the bedside. The patient is being discharged today to home with resources provided by [facility] earlier in the admission. The patient's mother will be providing transportation home. CM continues
to be available to patient/family and is monitoring medical plan for needs at discharge.
Plan: Discharge to home with no additional needs being identified at this time.
--- NOTE | 2023-10-23 10:21 | W.PN.UPDATE ---
Update Note
Progress Note Update
Patient seen, chart reviewed, discussed with staff. Ms Glasgow is anticipated for discharge today. her mother has flown in from [place] to pick her up and help her deal with some of her current issues. Ms. Glasgow is very pre-occupied with the fact
that Ambien has been discontinued and her family is forcing her to change PCP. She tells me she is unable to sleep without it and does not know what she is going to do, 'I am too anxious'. I ask if she still plans to do outpatient treatment for ETOH
and she tells me she does not need it. She tells me she needs to take care of getting a new phone and getting into her safe as she has been locked out. I ask if the Remeron was helpful and she tells me 'maybe a little but they don't let you sleep
here'. I discuss the MOA of Remeron and that is she was to continue, she may find it to be very beneficial for sleep as well as offering some benefit to her anxiety. She tells me she agrees to continue but then also goes on to talk about needing the
Ambien. I also suggest a sleep study as she has never had one in order to assess for organic causes of her insomnia that may be treatable. I also recommend psychotherapy to help with her reported anxiety which in turn could improve her sleep.
ETOH use disorder: strongly recommend ETOH treatment as an outpatient.
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 Remeron initiated at 15mg HS, recommend she continue this and follow up with PCP. Sleep study should be obtained.
--- NOTE | 2023-10-23 14:13 | W.DCSUMMARY ---
Discharge Summary
Discharge Data
Date of Admission: 10/17/23
Date of Discharge: 10/23/23
-
Pending Results: No
Hospital Course
Primary diagnoses:
Acute toxic metabolic encephalopathy due to Ambien
Alcohol abuse disorder with likely alcohol withdrawal
Possible right lower lobe pneumonia
Secondary diagnoses:
Elevated transaminases
Essential Hypertension
Hyperlipidemia
Hypothyroidism
Insomnia
Microscopic hematuria
Consultants:
Neurology
Psychiatry
Imaging:
Abd U/S: Normal appearance of the gallbladder with no evidence for biliary ductal dilation. Diffuse fatty infiltration of the liver. Hepatic cysts. Bilateral renal calcifications, which likely represent nephroliths. Mild left calyceal dilation,
without significant dilation of the left renal pelvis. No evidence for right-sided pelvicalyceal dilation.
CXR: Right lower lobe volume loss with atelectasis versus pneumonia and possible subpulmonic small effusion.
MRI brain: No acute intracranial abnormality noted. A prominent nonenhancing T2/FLAIR hyperintense left parietal lobe lesion may reflect a focus of gliosis or demyelinating lesion.
LUE U/S: No sonographic evidence for left upper extremity venous thrombosis.
Hospital course: 53-year-old female who initially presented with chief complaint of acute confusion as outlined in the H&P done on admission. Patient's family called to check in on her as they had not seen her in a few weeks. She was a known
alcoholic and had been drinking 750 mL of vodka daily. She was unsure when her last drink was. She had been hallucinating. She apparently was also taking large doses Ambien for insomnia. Patient had acute toxic metabolic encephalopathy due to
Ambien and likely alcohol withdrawal. Her urine drug screen was negative. Alcohol level 0 on admission. She was treated with thiamine and folate. She did have elevated transaminases due to alcohol abuse disorder which resolved. She was treated
with a phenobarbital taper. MRI of the brain was unremarkable for acute findings as above. Clinically the patient improved. Of note she had possible right lower lobe pneumonia on imaging and this was possibly due to aspiration. She completed 5
days of Rocephin and doxycycline.
Discharge Plan
-
Patient Disposition: Home (Routine Discharge)
Discharge Diagnosis/Procedures: Acute toxic metabolic encephalopathy due to Ambien, alcohol abuse disorder, possible right lower lobe pneumonia
Condition: Good
Diet: Low Cholesterol and Other diet
Additional Diets: Heart healthy
Activity: As tolerated
Driving Restrictions: As prior to admission
Bathing Restrictions: None
Activity Restrictions/Additional Instructions:
Follow-up with sleep specialist. Repeat urinalysis as outpatient to rule out blood in the urine. If you have blood need further workup
Referrals:
Dioni Farrar MD [Active] -
UNKNOWN - PT DOES,NOT KNOW [Family Provider] - in less than 1 week
Additional Discharge Medication Instructions: STOP AMBIEN
Prescriptions:
New
folic acid 1 mg Tablet
1 mg PO DAILY Qty: 0 0RF
melatonin 5 mg Tablet
5 mg PO HS Qty: 30 0RF
thiamine HCl (vitamin B1) 100 mg Tablet
200 mg PO DAILY Qty: 0 0RF
Continued
carvedilol 25 mg tablet
25 mg PO BID
atorvastatin 20 mg tablet
20 mg PO DAILY
amlodipine 5 mg tablet
5 mg PO DAILY
levothyroxine 50 mcg tablet
50 mcg PO DAILY@0600
Discontinued
zolpidem 10 mg tablet
10 mg PO HS
Discharge Orders:
Discharge Patient (As Directed); Ordered 10/23/23
Ordered By: Dustin Sidhu
Discharge Date and Time
Discharge Date/Time: 10/23/23 12:08
Print Language: SAMOAN
== END 2023-10-23 12:08 | disposition home or self-care (01) | DRG 896 ==
LOC: 2 NORTH 18:23
PROVIDERS: Clinical Nurse Specialist Family Health; Physician Assistant; Psychiatry & Neurology Psychiatry; ADMITTING PHYSICIAN Hospitalist; ATTENDING PHYSICIAN Internal Medicine; CONSULT PHYSICIAN Psychiatry & Neurology Neurology; CONSULT PHYSICIAN Psychiatry & Neurology Psychiatry; EMERGENCY PHYSICIAN Emergency Medicine
DX: F10.931 Alcohol use, unspecified with withdrawal delirium (principal); G92.8 Other toxic encephalopathy; J69.0 Pneumonitis due to inhalation of food and vomit; R74.01 Elevation of levels of liver transaminase levels; I10 Essential (primary) hypertension; T42.6X1A Poisoning by other antiepileptic and sedative-hypnotic drugs, accidental (unintentional), initial encounter; E03.9 Hypothyroidism, unspecified; G47.00 Insomnia, unspecified
CPT/HCPCS: 70450; 70553; 71046; 76700; 80053; 80306; 81003; 81015; 82010; 82077; 82550; 82607; 82746; 82977; 83735; 84100; 84443; 84703; 85025; 85610; 85730; 86704; 86705; 86706; 86708; 86709; 86803; 87040; 87086; 87340; 87502; 87811; 92523; 92610; 93005; 93971; 95816; 96361; 96365; 96375; 96376; 97116; 97163; 97167; 97530; 99285

== ENCOUNTER 2023-11-26 02:50 | Emergency (ER) | payer BC, SELFPAY ==
[2023-11-26 02:53] VITALS: BP 174/100
[2023-11-26 06:12] VITALS: BP 166/98
[2023-11-26] MEDS: ATIVAN 1 MG PO (07:04)
--- NOTE | 2023-11-26 07:11 | ED.GENMED ---
History of Present Illness
General
Chief Complaint: Sleep Disturbances
Source: patient
Exam Limitations: none
Time Seen by Provider: 11/26/23 06:14
Nursing documentation reviewed up to this point in time: agreed with
Travel History
Have you had any contact with someone who has COVID-19?: No
Do you have any symptoms of coronavirus? Fever > 100 degrees, chills, cough, shortness of breath, sore throat, loss of taste or smell, muscle aches, or headache?: No
History of Present Illness
History of Present Illness:
Patient presents to ED secondary to increased anxiety, associated with inability to sleep over the past 1 week. In addition, patient stating that she keeps losing hair, and does not know why. Patient has been evaluated by her primary care
physician as well as her hospitalization last month, when she was admitted for confusion secondary to combination of alcohol abuse as well as overuse of Ambien. Denies headache. Denies fever. Denies dizziness. Denies chest pain or shortness of
breath. Denies nausea, vomiting, or diarrhea. In addition, patient states that she has not been eating well. As patient recently had blood work, she does not wish to receive any further blood work.
Past History
Past History
ED Past Medical History: Hypercholesterolemia
ED Past Surgical History: None
Social History
Tobacco: Non-smoker
Alcohol: Other (Unclear but sounds like patient was pretty heavily drinking for quite a bit)
Personal:
Living: with family
Employment: Employed
Review of Systems
Review of Systems
Allergies reviewed?: Yes
All Other Systems: ROS reviewed and negative except as documented in HPI and ROS
Constitutional: Reports no symptoms
Cardiac: Reports no symptoms
ABD/GI: Reports no symptoms
: Reports no symptoms
Musculoskeletal: Reports no symptoms
Skin: Reports no symptoms
Neurological: Reports no symptoms; Denies dizzy, headache, weakness or numbness
Psychiatric: Reports depression and anxiety
Phy Exam
Physical Exam
Physical Exam:
Physical Exam
General: no apparent distress, not acutely ill. afebrile
Head: nc/at. eomi
Neck: supple. no meningeal signs.
Heart: s1/s2 regular rate and rhythm, no murmur. equal radial pulses.
Lungs: no acute respiratory distress. clear bilaterally
Abdomen: normal bowel sounds. not tender.
Neuro: alert and oriented. no focal neurological deficits
Skin: no rash
Psychiatric: well kept. interactive and cooperative
Extremities: no edema. no calf tenderness.
Course
Orders/Labs/Results
Orders:
Orders
11/26/23 06:33
Crisis Consult Urgent
Reason for Consult: anxiety
Lorazepam [Ativan] 1 mg PO NOW STA
11/26/23 08:08
PSYCHIATRY CONSULT Urgent
Consulting Provider: Davi Manning
Was physician already notified: Yes
Reason for consult: anxiety
Vital Signs
Initial and Last Documented VS:
Initial Vital Signs
Temp Pulse Resp BP Pulse Ox
97.8 F 68 24 174/100 100
11/26/23 02:53 11/26/23 02:53 11/26/23 02:53 11/26/23 02:53 11/26/23 02:53
Last Documented Vital Signs
Temp Pulse Resp BP Pulse Ox
97.8 F 72 19 136/86 97
11/26/23 02:53 11/26/23 10:40 11/26/23 10:40 11/26/23 10:40 11/26/23 10:40
MDM/Problems Addressed
MDM/Problems Addressed:
Pt evaluated by Kacey Early and (psychiatry) - decision made to discharge home with close outpatient f/u with therapist, along with short course of ambien to aide with sleep at night.
*Critical Care Note
Total Time (30-74mins, 75-104mins- exclusive of procedures): Not Applicable
ED Attending Note
-
Portions of this chart may have been created with voice recognition software.� Occasional wrong word or��sound alike� substitutions may have occurred due to the inherent limitations of voice recognition software.
Discharge Plan
Departure
Patient Disposition: Home (Routine Discharge)
Date of Disposition: 11/26/23
Time of Disposition: 10:19
Patient with high blood pressure during this ER visit?: Yes
Condition: Good
Discharge Problem:
Insomnia, Anxiety
Instructions: Generalized Anxiety Disorder (DC), Insomnia (DC)
Prescriptions:
New
zolpidem [Ambien] 10 mg tablet
10 mg PO HS Qty: 7 0RF
No Action
carvedilol 25 mg tablet
25 mg PO BID
atorvastatin 20 mg tablet
20 mg PO DAILY
amlodipine 5 mg tablet
5 mg PO DAILY
levothyroxine 50 mcg tablet
50 mcg PO DAILY@0600
folic acid 1 mg Tablet
1 mg PO DAILY Qty: 0 0RF
melatonin 5 mg Tablet
5 mg PO HS Qty: 30 0RF
thiamine HCl (vitamin B1) 100 mg Tablet
200 mg PO DAILY Qty: 0 0RF
Referrals:
Meghan Massey MD [Family Provider] -
Activity Restrictions/Additional Instructions:
As discussed, please follow up with your primary care physician and/or referred outpatient therapy/counseling for further evaluation and treatment. Your prescription has been sent electronically to [facility] in [place].
Interventions
Interventions:
*Risk Screen - Suicide Last Done: 11/26/23 02:53
*General Assessment Last Done: 11/26/23 06:19
*Neglect/Abuse Screening Last Done: 11/26/23 02:53
ED- Fall Risk Assessment Last Done: 11/26/23 06:15
*ED COVID-19 Vaccine History Last Done: 11/26/23 06:15
*Nursing Disposition Last Done: 11/26/23 10:43
ED-Suicide Risk Assessment Last Done: 11/26/23 06:15
ED- Neurological Assessment Last Done: 11/26/23 06:15
ED-Psychological Assessment Last Done: 11/26/23 06:15
Discharge Date and Time
Discharge Date/Time: 11/26/23 11:07
Print Language: THAI
[2023-11-26 10:40] VITALS: BP 136/86
--- NOTE | 2023-11-26 14:39 | CS.PSYCHR ---
Consult Summary - Psychiatry
-
Pt is 53 yo female who presented c/o anxiety and not able to sleep for a few weeks, since Ambien was discontinued. Pt had been on Ambien 20 mg HS from her PCP, stopped after pt presented last month with confusion, attributed to combination of
Ambien overuse and alcohol use. Pt is now on Zoloft and Trazodone, which she states in not effective. Pt was seen by Psychiatry last month during her stay at , tried on Seroquel- made her feel '', also no Remeron- response unclear. Pt c/o
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 Pt states her home is cluttered, keeps a lot of stuff due to 'memories.' Pt c/o a slight cognitive decline, states she is not as able to multi-task as
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 Psychiatry recommended a sleep study last month- pt states the sleep/pulmonary doctor declined to do a study due to pt's Ambien and alcohol use. Pt was also
recommended for outpatient therapy and medication mgt, but did not follow up. Pt denies any significant depression, denies SI, denies perfecto.
Psych Hx: anxiety, insomnia, managed by PCP, prescribed Ambien 10 mg #60 per month. PCP went on leave, current primary care provider is reportedly not prescribing Ambien
SH: pt states she has 1 to 2 drinks of vodka with dinner/socially. Works as Math/private tutor
MSE: alert, oriented, sitting up, making good eye contact. Speech coherent, mildly pressured, thought goal-directed. No signs of perfecto or depression, no signs of psychosis. Insight limited regarding alcohol use
Imp: Unspecified anxiety, insomnia
R/o Alcohol abuse
Rec: Outpatient therapy and psych med mgt
== END 2023-11-26 11:07 | disposition home or self-care (01) ==
LOC: EMR 02:50
PROVIDERS: EMERGENCY PHYSICIAN Emergency Medicine; FAMILY PHYSICIAN Student in an Organized Health Care Education/Training Program; OTHER PHYSICIAN Psychiatry & Neurology Psychiatry
DX: G47.00 Insomnia, unspecified (principal); F41.9 Anxiety disorder, unspecified; F32.A Depression, unspecified; R03.0 Elevated blood-pressure reading, without diagnosis of hypertension; E78.00 Pure hypercholesterolemia, unspecified
CPT/HCPCS: 99283